=== PATIENT | female | born 1985 | race Caucasian/White ===

== ENCOUNTER 2022-07-30 13:26 | Observation (INO) | payer OTHER, SELFPAY ==
[2022-07-30] VITALS (7 sets, daily range): BP systolic 96–126; BP diastolic 52–71; PULSE 107–132; RESP 16–20; TEMP 36.8–37.6; O2SAT 99–100
[2022-07-30 14:55] LABS: Basophils Percent Auto 0.1 % (0.2-1.2); Eosinophils Percent Auto 0.1 % (0-4.4); Hematocrit 37.4 % (37.0-47.0); Hemoglobin 12.3 g/dL (12.0-15.0); Immature Granulocyte Absolute 0.08 K/mm3 (0.00-0.031); Immature Granulocyte Percent A 0.6 % (0-0.5); Lymphocytes Percent Auto 4.3 % (18.3-44.2); Mean Corpuscular HGB Conc 32.9 g/dl (32-36); Mean Corpuscular Hemoglobin 34.4 pg (26-34); Mean Corpuscular Volume 104.5 fl (80-100); Mean Platelet Volume 8.9 fl (7.4-10.4); Monocytes Absolute Auto 0.7 K/mm3 (0.1-0.6); Monocytes Percent Auto 4.9 % (2.6-8.5); Neutrophils Absolute Auto 12.6 K/mm3 (1.3-6.7); Platelet Count Result 250 k/mm3 (150-375); Red Blood Count 3.58 M/mm3 (4.2-5.4); Red Cell Distribution Width 13.3 % (11.5-14.5)
[2022-07-30 14:58] LABS: Add Urine Microscopic? YES; Appearance Urine Cloudy (Clear); Bilirubin Urine Negative (Negative); Blood Urine 1+ (Negative); Color Urine Yellow (Yellow); Glucose Urine UA Negative (Negative); Ketones Urine 3+ mg/dL (Negative); Leukocyte Esterase Ur 3+ LEU/UL (Negative); Nitrate Urine Positive (Negative); Protein Urine 2+ mg/dL (Negative); Specific Grav Ur 1.025 (1.001-1.035)
[2022-07-30 15:04] LABS: Alanine Aminotransferase 18 U/L (6-35); Albumin Level 3.9 g/dL (3.5-5.1); Alkaline Phosphatase 113 U/L (38-126); Anion Gap 6 mmol/L (8-16); Aspartate Amino Transferase 20 U/L (14-36); Bilirubin,Total 0.8 mg/dL (0.2-1.3); Blood Urea Nitrogen 8 mg/dL (7-17); Carbon Dioxide 24 mmol/L (22-30); Chloride 102 mmol/L (98-107); Estimated CRCL calculation 177 ml/min; Estimated Glomerular Filt Rate > 60; Glucose 110 mg/dL (65-110); Lipase 33 U/L (23-300); Potassium 3.3 mmol/L (3.4-5.0); Sodium 132 mmol/L (137-145)
[2022-07-30 15:34] LABS: Bacteria Urine Trace /hpf; Mucus Urine Rare /lpf; Squamous Epithelial Cell Urine Many /hpf (Few); WBC Clumps Urine Present /HPF; WBC Urine >75 /hpf
--- NOTE | 2022-07-30 23:26 | ED.NAVMDI ---
HPI - Nausea/Vomiting/Diarrhea General Chief complaint: Nausea/Vomiting/Diarrhea Stated complaint: 6 months , vomiting Time Seen by Provider: 07/30/22 22:06 History of Present Illness HPI Narrative: This is a 37-year-old female G2, P1 at 24 weeks and 1 day, who denies past medical history, presenting the emergency department for vomiting for the past 4 days. She states she has had mild right flank pain for the past 5 days, 4 days ago she ate a pizza and has been vomiting since then. She is only able to tolerate small amounts of fluid. She denies fevers, abdominal pain or diarrhea. She has no other complaints today. Related Data Allergies Allergy/AdvReac Type Severity Reaction Status Date / Time Penicillins Allergy Unknown Hives / Verified 01/22/22 13:54 Red Face Review of Systems Review of Systems: CONSTITUTIONAL: Denies fever, chills, or sweats. EYES: Denies visual changes, redness, or discharge. ENT: Denies rhinorrhea, congestion, sore throat, or otalgia. CARDIOVASCULAR: Denies chest pain, palpitations, or edema. RESPIRATORY: Denies cough or dyspnea. GASTROINTESTINAL: Denies abdominal pain, nausea, vomiting, or diarrhea. GENITOURINARY: Right flank pain denies dysuria or hematuria. SKIN: Denies rash or itching. MUSCULOSKELETAL: Denies back pain, joint pain, or myalgia. NEUROLOGIC: Denies headache, numbness, dizziness, or weakness. PSYCHIATRIC: Denies anxiety or depression. Exam Narrative: GENERAL: Well-developed, well-nourished, appears uncomfortable HEAD: Normocephalic, atraumatic. EYES: PERRLA and EOMI. ENT: Nares clear, no rhinorrhea or epistaxis. Mucous membranes dry. Poor dentition.. Oropharynx without tonsillar hypertrophy exudate or other lesions. NECK: Supple. No adenopathy or masses. No carotid bruits or JVD CHEST: Clear to auscultation. No respiratory distress. No wheezes rales or rhonchi HEART: Tachycardic with regular rhythm. No murmur heard. Normal peripheral pulses. ABDOMEN: Soft, nontender, nondistended, normal active bowel sounds. Nontender gravid uterus consistent with dates EXTREMITIES: Normal range of motion. No edema. SKIN: Warm, dry, no rash. NEURO: No focal deficits. Alert and oriented x3. PSYCH: Normal mood and affect. Course Course Emergency Course: 23:36 - Labs demonstrate urinary tract infection, with flank tenderness I suspect pyelonephritis. White blood cell count elevated to 14. Chemistries not concerning for MICHAELA (creatinine 0.4) and mild hypokalemia at 3.3. Bedside ultrasound performed by me demonstrates a single intrauterine consistent with dates, with heart rate in the 140s. Discussed patient with OB, Dr. Robison who accepts admission for pyelonephritis. Vital Signs Vital signs: Vital Signs Temperature 98.2 F 07/30/22 14:23 Pulse Rate 115 H 07/30/22 14:23 Respiratory Rate 16 07/30/22 14:23 Blood Pressure 111/68 07/30/22 14:23 Pulse Oximetry 99 07/30/22 14:23 Oxygen Delivery Room Air 07/30/22 14:23 Temperature 99.6 F 07/30/22 20:53 Pulse Rate 120 H 07/31/22 00:36 Respiratory Rate 20 07/30/22 23:55 Blood Pressure 99/56 L 07/31/22 00:36 Pulse Oximetry 100 07/30/22 23:55 Oxygen Delivery Room Air 07/30/22 22:22 MDM - Nausea/Vomiting/Diarrhea MDM Narrative Medical decision making narrative: Plan: Labs, bedside ultrasound, IV fluids, reassess Differential Diagnosis Differential diagnosis: Likely other (UTI, pyelonephritis, gastroenteritis, hyperemesis gravidarum, metabolic abnormality, other) Lab Data 07/30/22 14:41 07/30/22 14:41 Labs: Lab Results 07/30/22 07/30/22 07/30/22 Range/Units 14:41 14:41 14:41 WBC 14.0 H (4.5-10.0) K/mm3 RBC 3.58 L (4.2-5.4) M/mm3 Hgb 12.3 (12.0-15.0) g/dL Hct 37.4 (37.0-47.0) % MCV 104.5 H (80-100) fl MCH 34.4 H (26-34) pg MCHC 32.9 (32-36) g/dl RDW 13.3 (11.5-14.5) % Plt Count 250 (150-375) k/mm3 MPV
[2022-07-30] MEDS: SODIUM CHLORIDE 0.9% IV 1,000 ML 999 ML IV CONT (23:34)
[2022-07-30] MEDS: ONDANSETRON INJ 4 MG/2 ML VIAL IV PUSH (23:55)
[2022-07-31] VITALS (7 sets, daily range): BP systolic 99–110; BP diastolic 55–62; PULSE 88–120; RESP 17; TEMP 36.4–37.3; BMI 34.6
--- NOTE | 2022-07-31 00:48 | OBADM ---
This patient, Billy So, admitted to the OB room OB Post 117 for observation. Patient/family oriented to hospital policies and general routines including ID bracelet, bed and alarms, visiting hours, pain management, procedures, bathroom and other care routines, personal items, smoking policy, room service/diet, and visiting hours. Patient/Family are encouraged to report perceived risks to care and to ask questions if they do not understand what they are told or what they should do.
[2022-07-31] MEDS: LACTATED RINGERS 1,000 ML 125 ML IV CONT ×3 (01:06→15:05)
[2022-07-31] MEDS: ACETAMINOPHEN 500 MG TABLET 1000 MG PO ×3 (03:03→14:56)
[2022-07-31] MEDS: ONDANSETRON INJ 4 MG/2 ML VIAL IV PUSH ×2 (03:08→08:03)
--- NOTE | 2022-07-31 08:06 | PM.IMHP ---
H&P: [facility] History of Present Illness Date/Time: 07/31/22 08:06 Chief Complaint: Flank pain Narrative: this patient is a 37-year-old 2 para 1001 at 25 weeks gestation who presented emergency department with days of nausea vomiting, flank pain. Evaluation there revealed a pyelonephritis with markedly abnormal urinalysis, mildly elevated white count and flank pain. Patient reported fever at home but no fever was observed in the emergency department. No fever here overnight. She looks well and comfortable. We agreed to discharge today and to treat with 10 days of oral antibiotics. She will follow-up in the office today. We spent 25 minutes [id number]. More than 50% was counseling. Review of Systems Review of Systems: All systems reviewed & are unremarkable except as noted in HPI and below Constitutional: Constitutional: Denies chills, Denies fatigue, Denies fever(s) and Denies weakness Eyes: Eyes: Denies blurry vision, Denies change in vision, Denies loss of peripheral vision, Denies loss of vision, Denies other visual disturbances and Denies eye pain ENT: Denies vertigo, Denies dizziness, Denies hearing loss, Denies mouth pain, Denies nasal obstruction, Denies neck mass and Denies neck pain Cardiovascular: Cardiovascular: Denies chest pain, Denies diaphoresis, Denies syncope, Denies leg edema and Denies dyspnea Respiratory: Respiratory: Denies chest congestion, Denies cough, Denies hemoptysis, Denies dyspnea and Denies wheezing Gastrointestinal: Gastrointestinal: Denies abdominal pain, Denies constipation, Denies diarrhea, Denies nausea and Denies vomiting Genitourinary: Genitourinary: Denies hematuria, Denies change in libido, Denies nocturia, Denies genital lesions, Denies flank pain and Denies urinary urgency Musculoskeletal: Musculoskeletal: Denies abnormal gait, Denies back pain, Denies myalgias, Denies arthralgias, Denies joint swelling, Denies muscle weakness and Denies neck pain Integumentary/Breasts: Skin/Breast: Denies swelling, Denies breast pain, Denies breast mass, Denies dry skin, Denies nipple discharge, Denies unusual bruising and Denies jaundice Neurologic: Denies Neuro-related abnormal movements, Denies Abnormal speech present, Denies abnormal gait, Denies behavioral changes, Denies confusion, Denies vertigo, Denies dizziness, Denies syncope, Denies loss of vision, Denies memory loss, Denies convulsions and Denies weakness Psychiatric: Psychiatric: Denies abnormal sleep pattern, Denies behavioral changes, Denies change in libido, Denies confusion, Denies depression, Denies anhedonia and Denies memory loss Endocrine: Endocrine: Reports no additional endocrine complaints, Denies change in libido and Denies fatigue Hematologic/Lymphatic: Hematologic/Lymphatic: Reports no additional hematologic/lymphatic complaints Allergic/Immunologic: Allergic/Immunologic: Reports no additional allergic/immunologic complaints and Denies wheezing Meds Home Medications and Allergies Allergies Allergy/AdvReac Type Severity Reaction Status Date / Time Penicillins Allergy Unknown Hives / Verified 01/22/22 13:54 Red Face Vital Signs Vital Signs - 24 hr 07/30/22 14:23 07/30/22 18:19 07/30/22 20:53 Temperature 98.2 F 98.5 F 99.6 F Pulse Rate 115 H 116 H 132 H Respiratory Rate 16 20 20 Blood Pressure 111/68 121/70 126/67 Pulse Oximetry 99 100 100 Oxygen Delivery Room Air 07/30/22 22:22 07/30/22 23:01 07/30/22 23:37 Temperature Pulse Rate 125 H 119 H 107 H Respiratory Rate 20 18 20 Blood Pressure 108/71 104/52 L Pulse Oximetry 100 100 100 Oxygen Delivery Room Air 07/30/22 23:55 07/31/22 00:36 07/31/22 05:17 Temperature 97.6 F Pulse Rate 112 H 120 H 105 H Respiratory Rate 20 17 Blood Pressure 96/58 L 99/56 L 102/55 L Pulse Oximetry 100 Oxygen Delivery 07/31/22 07:35 07/31/22 07:38 Temperature 98.5 F Pulse Rate 88 Respiratory Rate Blood Pressure 107/62 Pulse Oximetry
--- NOTE | 2022-07-31 09:35 | PC.NURSE ---
0920--Pt. vomited 50cc brown liquid emesis after drinking a small amount of coffee with cream and sugar. She states she has abdominal pain in lower abdomen, abdomen palpated, uterine tone relaxed, able to palpate bladder. I asked pt. when she last voided and she states it was after the last nurse gave me some medicine. According to the MAR that was approx. 0300 this a.m. Pt. voided 100cc dark, cloudy urine. After voiding, pt. states abdominal pain is better .
[2022-07-31] MEDS: LACTATED RINGERS 1,000 ML 999 ML IV CONT ×2 (10:31→11:33)
[2022-07-31] MEDS: cefTRIAXone 1 GM VIAL IM (10:40)
[2022-07-31] MEDS: LIDOCAINE HCL 1% LOCAL INJ 10 ML VIAL 3.6 ML INFILTRATE (10:41)
--- NOTE | 2022-08-25 08:33 | PM.OBTRLD ---
OB - Triage/Final Diagnosis Visit Information Comments/Additional reasons for admission: I have assessed the risk for this patient, Billy So, and determined that she would benefit from observation care. Evaluation Laboratory results: Laboratory Tests 07/30/22 07/30/22 07/30/22 14:41 14:41 14:41 WBC 14.0 H RBC 3.58 L Hgb 12.3 Hct 37.4 MCV 104.5 H MCH 34.4 H MCHC 32.9 RDW 13.3 Plt Count 250 MPV 8.9 Immature Gran % (Auto) 0.6 H Neut % (Auto) 90.0 H Lymph % (Auto) 4.3 L [place] % (Auto) 4.9 Eos % (Auto) 0.1 Baso % (Auto) 0.1 L Lymph # (Auto) 0.60 L [place] # (Auto) 0.7 H Eos # (Auto) 0.0 Baso # (Auto) 0.0 Abs Immat Gran (auto) 0.08 H Absolute Neuts (auto) 12.6 H Absolute Nucleated RBC 0.0 Nucleated RBC % 0.0 Sodium 132 L Potassium 3.3 L Chloride 102 Carbon Dioxide 24 Anion Gap 6 L BUN 8 Creatinine 0.40 L Estim Creat Clear Calc 177 Estimated GFR > 60 Glucose 110 Calcium 9.0 Total Bilirubin 0.8 AST 20 ALT 18 Alkaline Phosphatase 113 Total Protein 7.0 Albumin 3.9 Lipase 33 Urine Color Yellow Urine Appearance Cloudy H Urine pH 6.0 Ur Specific Point Clear 1.025 Urine Protein 2+ H Urine Glucose (UA) Negative Urine Ketones 3+ H Ur Blood (Man) 1+ H Urine Nitrate Positive H Urine Bilirubin Negative Urine Urobilinogen 1.0 Leukocyte Esterase Rfl 3+ H Urine RBC 3-5 H Urine WBC >75 H Urine WBC Clumps Present H Ur Squamous Epith Cells Many H Urine Bacteria Trace Hyaline Casts 5-9 H Urine Mucus Rare Final Diagnosis (1) Pyelonephritis: Code(s): N12 - Tubulo-interstitial nephritis, not specified as acute or chronic Status: Acute
== END 2022-07-31 19:14 | disposition home or self-care (01) ==
LOC: ANHED 22:06 → ANHOBPP 23:49
PROVIDERS: Emergency Medicine; Admitting Provider Obstetrics & Gynecology; Emergency Provider Preventive Medicine Aerospace Medicine; Visit Provider Obstetrics & Gynecology
DX: O26.892 Other specified pregnancy related conditions, second trimester (principal); N12 Tubulo-interstitial nephritis, not specified as acute or chronic; Z3A.21 21 weeks gestation of pregnancy
CPT/HCPCS: 36415; 80053; 81001; 83690; 85025; 87077; 87086; 87186; 96361; 96365; 96372; 96374; 96375; 96376; 99285; A9270; G0378; G0379; J0696; J2405; J7030; J7120

== ENCOUNTER 2022-10-10 20:16 | Observation (INO) | payer OTHER, SELFPAY ==
--- NOTE | 2022-10-10 20:16 | OBADM ---
This patient, Billy So, admitted to the OB room Labor/Delivery/Recovery 107 for observation. Patient/family oriented to hospital policies and general routines including ID bracelet, bed and alarms, visiting hours, pain management, procedures, bathroom and other care routines, personal items, smoking policy, room service/diet, and visiting hours. Patient/Family are encouraged to report perceived risks to care and to ask questions if they do not understand what they are told or what they should do.
[2022-10-10 20:31] VITALS: BP 112/71; PULSE 101
[2022-10-10 20:46] VITALS: BP 113/63; PULSE 102
[2022-10-10] MEDS: BETAMETHASONE SOD PHOS/ACETATE 30 MG/5 ML VIAL 12 MG IM (21:29)
[2022-10-10] MEDS: LACTATED RINGERS 1,000 ML 999 ML IV CONT (21:33)
[2022-10-10 21:47] VITALS: BMI 38.2
--- NOTE | 2022-10-10 21:48 | LDADM ---
This patient, Billy So, was admitted to Labor/Delivery/Recovery 107 on 10/10/22 at 20:16. Plans for labor, pain management and were discussed with patient. Patient/family oriented to hospital policies and general routines including ID bracelet, bed and alarms, visiting hours, pain management, procedures, bathroom and other care routines, personal items, smoking policy, room service/diet and guest tray routines, security routines, and visiting hours. Patient/Family are encouraged to report perceived risks to care and to ask questions if they do not understand what they are told or what they should do. See OBIX for further documentation.
[2022-10-11] VITALS (58 sets, daily range): BP systolic 107–127; BP diastolic 59–68; PULSE 87–121; RESP 16; TEMP 36.2–36.4; O2SAT 92–99
[2022-10-11] MEDS: TERBUTALINE SULFATE 1 MG/ML VIAL 0.25 MG SUB-Q (00:34)
--- NOTE | 2022-10-13 18:43 | PM.OBTRLD ---
OB - Triage/Final Diagnosis Visit Information Date of evaluation: 10/10/22 Reason for evaluation: threatened labor Comments/Additional reasons for admission: I have assessed the risk for this patient, Billy Luis A So, and determined that she would benefit from observation care.
== END 2022-10-11 09:23 | disposition home or self-care (01) ==
PROVIDERS: Admitting Provider Obstetrics & Gynecology; Visit Provider Obstetrics & Gynecology
DX: O47.03 False labor before 37 completed weeks of gestation, third trimester (principal); Z3A.35 35 weeks gestation of pregnancy
CPT/HCPCS: 96360; 96372; G0378; G0379; J0702; J3105; J7120

== ENCOUNTER 2022-10-21 22:45 | Inpatient (IN) | payer OTHER, SELFPAY ==
--- NOTE | ~2022-10-21 | XR_ITS ---
EXAMINATION: XR abdomen/kub 1V INDICATION: Emergency section TECHNIQUE: Supine views of the abdomen were obtained on 2 radiographs. COMPARISON: None FINDINGS: No radiopaque foreign body is identified. A small amount of free air in the pelvis is consi stent with section. The bowel gas pattern is normal. The visualized osseous structures are u nremarkable. IMPRESSION: 1. No radiopaque foreign body identified. Reviewed, dictated and finalized at location F.
[2022-10-21] MEDS: LACTATED RINGERS 1,000 ML 125 ML IV CONT (23:22)
[2022-10-21 23:23] VITALS: BP 128/78; PULSE 111
[2022-10-21 23:24] VITALS: BMI 39.0
--- NOTE | 2022-10-21 23:24 | LDADM ---
This patient, Billy So, was admitted to Labor/Delivery/Recovery 103 on 10/21/22 at 22:45. Plans for labor, pain management and were discussed with patient. Patient/family oriented to hospital policies and general routines including ID bracelet, bed and alarms, visiting hours, pain management, procedures, bathroom and other care routines, personal items, smoking policy, room service/diet and guest tray routines, security routines, and visiting hours. Patient/Family are encouraged to report perceived risks to care and to ask questions if they do not understand what they are told or what they should do. See OBIX for further documentation.
[2022-10-21 23:25] LABS: Basophils Absolute Auto 0.1 K/mm3 (0.0-0.1); Basophils Percent Auto 0.3 % (0.2-1.2); Eosinophils Absolute Auto 0.2 K/mm3 (0-0.3); Eosinophils Percent Auto 1.2 % (0-4.4); Hematocrit 36.9 % (37.0-47.0); Hemoglobin 12.9 g/dL (12.0-15.0); Immature Granulocyte Absolute 0.15 K/mm3 (0.00-0.031); Immature Granulocyte Percent A 0.9 % (0-0.5); Lymphocytes Percent Auto 14.8 % (18.3-44.2); Mean Corpuscular Hemoglobin 35.9 pg (26-34); Mean Corpuscular Volume 102.8 fl (80-100); Mean Platelet Volume 9.4 fl (7.4-10.4); Monocytes Absolute Auto 0.8 K/mm3 (0.1-0.6); Monocytes Percent Auto 4.3 % (2.6-8.5); Neutrophils Absolute Auto 13.8 K/mm3 (1.3-6.7); Neutrophils Percent Auto 78.5 % (45.5-73.1); Platelet Count Result 312 k/mm3 (150-375); Red Blood Count 3.59 M/mm3 (4.2-5.4); Red Cell Distribution Width 13.3 % (11.5-14.5); White Blood Count 17.6 K/mm3 (4.5-10.0)
[2022-10-21] MEDS: ceFAZolin 2 GM/D5W 50 ML 2 GM/50 ML BAG 100 GM (23:27)
[2022-10-21 23:30] VITALS: BP 116/79; PULSE 93
[2022-10-21] MEDS: ceFAZolin 2 GM/D5W 50 ML 2 GM/50 ML BAG IVPB (23:32)
[2022-10-21 23:46] VITALS: BP 130/67; PULSE 93
[2022-10-22] VITALS (32 sets, daily range): BP systolic 99–131; BP diastolic 56–79; PULSE 77–124; RESP 16–20; TEMP 36.4–36.9; O2SAT 97–100
--- NOTE | 2022-10-22 00:01 | PM.IMHP ---
H&P: HPI History of Present Illness Date/Time: 10/22/22 00:01 Chief Complaint: Labor Review of Systems Review of Systems: All systems reviewed & are unremarkable except as noted in HPI and below Constitutional: Constitutional: Reports as per HPI and Reports no additional constitutional complaints Eyes: Eyes: Reports as per HPI ENT: Reports system reviewed and no additional complaints, except as documented Cardiovascular: Cardiovascular: Reports as per HPI Respiratory: Respiratory: Reports as per HPI Gastrointestinal: Gastrointestinal: Reports as per HPI Genitourinary: Genitourinary: Reports no additional female genitourinary complaints Musculoskeletal: Musculoskeletal: Reports no additional musculoskeletal complaints Integumentary/Breasts: Skin/Breast: Reports system reviewed and no additional complaints, except as docu Neurologic: Reports system reviewed and no additional complaints, except as documented Psychiatric: Psychiatric: Reports no additional psychiatric complaints Endocrine: Endocrine: Reports no additional endocrine complaints Hematologic/Lymphatic: Hematologic/Lymphatic: Reports no additional hematologic/lymphatic complaints Allergic/Immunologic: Allergic/Immunologic: Reports no additional allergic/immunologic complaints [facility] Family History Family History (Updated 10/20/22 @ 14:39 by Tiffani Fall RN) Grandparent Breast cancer Social History Social History Smoking status: Former smoker Lack of Transportation: No Lack of Food: Never True Current Housing: I Have Housing Concerned About Future Housing: No Difficulty Paying Gas/Electric Bills: No Difficulty Paying for Meds: No Currently Unemployed: No Education: High School Diploma/GED Difficulty w/ Childcare or Family Care: No Spiritual care concerns: No Meds Home Medications and Allergies Home Medications Medication Instructions Recorded Confirmed Type vits 75-iron 28 mg-folic 1 pkg PO DAILY 10/10/22 10/20/22 History acid 800 mcg-omega3 440 mg oral pack Allergies Allergy/AdvReac Type Severity Reaction Status Date / Time Penicillins Allergy Unknown Hives / Verified 10/10/22 21:43 Red Face Vital Signs Vital Signs - 24 hr 10/21/22 23:23 10/21/22 23:30 10/21/22 23:46 Pulse Rate 111 H 93 93 Blood Pressure 128/78 116/79 130/67 Exam Const: General: cooperative and healthy appearing Orientation/consciousness: oriented to person, oriented to place, oriented to time and patient oriented x3 Limitations: no limitations HENMT: Head: normal to inspection Ears: hearing grossly normal bilaterally Face/Nose/Sinus: Normal external nose present and normal facial exam Face and sinus: normal facial exam Mouth: Yes Normal oral and palatal mucosa present Teeth and gingiva: dentition normal Throat: posterior oropharynx normal Eyes: General: appearance normal, both eyes and all related structures Neck: Neck: normal visual inspection Thyroid: thyroid normal Chest: Chest palpation & inspection: normal inspection of the chest Resp: Effort & Inspection: normal respiratory effort Auscultation: clear to auscultation bilaterally Cardio: Rate: regular rate Rhythm: regular rhythm GI: Inspection: normal to inspection : General: Yes bimanual renal exam normal bilaterally Skin: General skin exam: normal color and no rashes or lesions noted Neuro: General: oriented to person, oriented to place, oriented to time and patient oriented x3 Extrem: General: normal to inspection Psych: Mental Status: mental status grossly normal H&P: Results Labs Labs: Short CBC 10/21/22 Range/Units 23:15 WBC 17.6 H (4.5-10.0) K/mm3 Hgb 12.9 (12.0-15.0) g/dL Hct 36.9 L (37.0-47.0) % Plt Count 312 (150-375) k/mm3 Quality 37 weeks gestation in spontaneous labor. Per nurse exam complete and unable to fe
--- NOTE | 2022-10-22 00:05 | WPDOBADMIT ---
Obstetrics - Admit Note Admission Note: 37w1d here in spontaneous labor. Arrived 9cm. Unknown presentation per nurse exam due to bbow. Vertex per ultrasound yesterday. Upon my arrival had to wait for ultrasound machine. Bedside ultrasound performed and baby is a unstable transverse presentation. Dr Robison on his way. OR team notified of possible . record reviewed. No pertinent additions to the history and/or any subsequent changes in the physical findings that are not consistent with the expected course of the were found. Additions to the history and/or subsequent changes in the physical findings follow. None.
--- NOTE | 2022-10-22 00:09 | WPDANESEPPF ---
Anes - Initial Pre Proc Eval Date/Time: 10/22/22 00:09 Surgeon: Devin Robison MD Pre Op Diagnosis: labor Patient Data Age: 37 Gender: F Height: 1.6 m Weight: 100 kg Last Vital Signs Pulse 93 10/21/22 23:46 BP 130/67 10/21/22 23:46 Allergies Allergy/AdvReac Type Severity Reaction Status Date / Time Penicillins Allergy Unknown Hives / Verified 10/10/22 21:43 Red Face Home Medications Medication Instructions Recorded Confirmed Type vits 75-iron 28 mg-folic 1 pkg PO DAILY 10/10/22 10/20/22 History acid 800 mcg-omega3 440 mg oral pack Laboratory Tests 10/21/22 10/21/22 10/21/22 23:15 23:15 23:15 WBC 17.6 K/mm3 H K/mm3 (4.5-10.0) RBC 3.59 M/mm3 L M/mm3 (4.2-5.4) Hgb 12.9 g/dL g/dL (12.0-15.0) Hct 36.9 % L % (37.0-47.0) MCV 102.8 fl H fl (80-100) MCH 35.9 pg H pg (26-34) MCHC 35.0 g/dl g/dl (32-36) RDW 13.3 % % (11.5-14.5) Plt Count 312 k/mm3 k/mm3 (150-375) MPV 9.4 fl fl (7.4-10.4) Immature Gran % (Auto) 0.9 % H % (0-0.5) Neut % (Auto) 78.5 % H % (45.5-73.1) Lymph % (Auto) 14.8 % L % (18.3-44.2) [place] % (Auto) 4.3 % % (2.6-8.5) Eos % (Auto) 1.2 % % (0-4.4) Baso % (Auto) 0.3 % % (0.2-1.2) Lymph # (Auto) 2.60 K/mm3 K/mm3 (0.9-3.2) [place] # (Auto) 0.8 K/mm3 H K/mm3 (0.1-0.6) Eos # (Auto) 0.2 K/mm3 K/mm3 (0-0.3) Baso # (Auto) 0.1 K/mm3 K/mm3 (0.0-0.1) Abs Immat Gran (auto) 0.15 K/mm3 H K/mm3 (0.00-0.031) Absolute Neuts (auto) 13.8 K/mm3 H K/mm3 (1.3-6.7) Absolute Nucleated RBC 0.0 K/mm3 K/mm3 (0.0-0.012) Nucleated RBC % 0.0 % % (0.0-0.2) RPR Pending Blood Type O Positive Antibody Screen Pending Patient hx anesthesia problems: none Family hx anesthesia problems: none Results Review: All pre-operative results and documents have been reviewed as part of the pre-operative evaluation. [facility] Past Medical History Medical History (Updated 10/22/22 @ 00:10 by Angel Smith MD) Abnormal heart rate Morbid obesity Family History Family History (Updated 10/20/22 @ 14:39 by Tiffani Fall RN) Grandparent Breast cancer Social History Social History Smoking status: Former smoker Lack of Transportation: No Lack of Food: Never True Current Housing: I Have Housing Concerned About Future Housing: No Difficulty Paying Gas/Electric Bills: No Difficulty Paying for Meds: No Currently Unemployed: No Education: High School Diploma/GED Difficulty w/ Childcare or Family Care: No Spiritual care concerns: No Anes - Eval Final PreProcedure Day of Procedure 10/22/22 00:09 Patient weight: morbidly obese Heart: tachycardia Airway: Mallampati scale class II and special considerations poor dentition ASA classification: III Emergent: yes Anesthetic plan: proceed Anesthesia type and monitoring: general ETT and standard monitoring Results Review: All pre-operative results and documents have been reviewed as part of the pre-operative evaluation. Informed Consent: The patient's anesthetic plan was discussed briefly on way to OR for this emergent case and its attendant risks and benefits were discussed with the patient..
--- NOTE | 2022-10-22 00:28 | PM.IMHP ---
H&P: [facility] History of Present Illness Date/Time: 10/22/22 00:28 Chief Complaint: Labor Narrative: 37-year-old multiparous female at term who presented in labor. She was going to a vertex baby as of yesterday. She was transverse today. The infant's head was rotated in the pelvis. She had polyhydramnios. It was held in the pelvis artificial rupture membranes was performed. Copious amounts of fluid were released from the uterus. When pressure was removed from the find is the head and baby moved back into the transverse position. Heart tones could not be auscultated With Doppler or visualized with ultrasound. proceed immediately to emergency delivery. Review of Systems Review of Systems: All systems reviewed & are unremarkable except as noted in HPI and below Constitutional: Constitutional: Denies chills, Denies fatigue, Denies fever(s) and Denies weakness Eyes: Eyes: Denies blurry vision, Denies change in vision, Denies loss of peripheral vision, Denies loss of vision, Denies other visual disturbances and Denies eye pain ENT: Denies vertigo, Denies dizziness, Denies hearing loss, Denies mouth pain, Denies nasal obstruction, Denies neck mass and Denies neck pain Cardiovascular: Cardiovascular: Denies chest pain, Denies diaphoresis, Denies syncope, Denies leg edema and Denies dyspnea Respiratory: Respiratory: Denies chest congestion, Denies cough, Denies hemoptysis, Denies dyspnea and Denies wheezing Gastrointestinal: Gastrointestinal: Denies abdominal pain, Denies constipation, Denies diarrhea, Denies nausea and Denies vomiting Genitourinary: Genitourinary: Denies hematuria, Denies change in libido, Denies nocturia, Denies genital lesions, Denies flank pain and Denies urinary urgency Musculoskeletal: Musculoskeletal: Denies abnormal gait, Denies back pain, Denies myalgias, Denies arthralgias, Denies joint swelling, Denies muscle weakness and Denies neck pain Integumentary/Breasts: Skin/Breast: Denies swelling, Denies breast pain, Denies breast mass, Denies dry skin, Denies nipple discharge, Denies unusual bruising and Denies jaundice Neurologic: Denies Neuro-related abnormal movements, Denies Abnormal speech present, Denies abnormal gait, Denies behavioral changes, Denies confusion, Denies vertigo, Denies dizziness, Denies syncope, Denies loss of vision, Denies memory loss, Denies convulsions and Denies weakness Psychiatric: Psychiatric: Denies abnormal sleep pattern, Denies behavioral changes, Denies change in libido, Denies confusion, Denies depression, Denies anhedonia and Denies memory loss Endocrine: Endocrine: Reports no additional endocrine complaints, Denies change in libido and Denies fatigue Hematologic/Lymphatic: Hematologic/Lymphatic: Reports no additional hematologic/lymphatic complaints Allergic/Immunologic: Allergic/Immunologic: Reports no additional allergic/immunologic complaints and Denies wheezing PMFSH Past Medical History Medical History (Updated 10/22/22 @ 00:31 by Devin Robison MD) Abnormal heart rate Morbid obesity Family History Family History (Updated 10/20/22 @ 14:39 by Tiffani Fall RN) Grandparent Breast cancer Social History Social History Smoking status: Former smoker Lack of Transportation: No Lack of Food: Never True Current Housing: I Have Housing Concerned About Future Housing: No Difficulty Paying Gas/Electric Bills: No Difficulty Paying for Meds: No Currently Unemployed: No Education: High School Diploma/GED Difficulty w/ Childcare or Family Care: No Spiritual care concerns: No Meds Home Medications and Allergies Home Medications Medication Instructions Recorded Confirmed Type vits 75-iron 28 mg-folic 1 pkg PO DAILY 10/10/22 10/20/22 History acid 800 mcg-omega3 440 mg oral pack Allergies Allergy/AdvReac Type Severity Reaction Status Date / Time P
--- NOTE | 2022-10-22 00:31 | W.PM.PROC2 ---
Procedure Note - Detailed Date of Procedure 10/22/22 Pre-op Diagnosis labor, unstable lie, polyhydramnios, nonreassuring heart tones Post-op Diagnosis Same Procedure Performed Low-transverse section Surgeon Devin Robison MD Anesthesia Spinal Indications nonreassuring heart tone Findings Normal gestational maternal anatomy, average size , normal Apgars. Description of Procedure the procedure was performed in emergency fashion.The patient was taken the operating room. She was prepped and draped in dorsal supine position with a leftward tilt. After general anesthesia was initiated. A low-transverse skin incision was made and carried down till of the fascia with the knife. The fascial incision was made with the knife. The fascial incision was extended laterally with Ceja scissors. The fascia was tented upward superiorly and inferiorly the rectus muscles were dissected off bluntly. The rectus muscles were the midline. The preperitoneal fat and peritoneum were dissected open bluntly at the superior aspect of the rectus muscles. The peritoneal incision was extended superior and inferior with good position of bladder. The uterine incision was made with a scalpel down to the level of the amniotic cavity. The amniotic cavity was entered bluntly. The was delivered. The cord was clamped and cut and the was handed off to waiting pediatric staff. Cord bloods were obtained. The placenta was removed manually. The uterus was exteriorized. The uterus was cleared of all clots, debris and membranes. The uterus was closed in 0 Vicryl running lock fashion. An imbricating over a was placed along the incision line as well. The uterus was returned to the abdomen. The gutters were cleared of all clots and debris. The fascia was closed with 0 Vicryl running fashion. The subcutaneous tissue was irrigated pinpoint bleeders were cauterized. The skin was closed with subcuticular absorbable ladan. The skin incision line was covered with glue. The patient tolerated the procedure well. She has taken recovery room in stable condition. Sponge lap and needle counts were correct x2. Estimated Blood Loss 700 Complications No immediate complications Condition Stable Disposition PACU
[2022-10-22] MEDS: fentaNYL CITRATE INJ (*CRX) 100 MCG/2 ML VIAL IV PUSH (00:39)
[2022-10-22] MEDS: MORPHINE SULFATE PCA (*CRX) 30 MG/30 ML SYR IV CONT (02:23)
[2022-10-22 02:36] LABS: Amphetamine Screen Urine Negative (Negative); Barbiturate Screen Urine Negative (Negative); Benzodiazepines Screen Urine Negative (Negative); Cannabinoid Screen Urine Positive (Negative); Cocaine Screen Urine Negative (Negative); Methadone Screen Urine Negative (Negative); Opiate Screen Urine Negative (Negative); Phencyclidine Screen Urine Negative (Negative)
--- NOTE | 2022-10-22 03:18 | PC.NURSE ---
Patient transferred to post room #292 per stretcher from labor and delivery. Oriented to unit, room, information board, rooming in, admission packet and security measures. Patient verbalizes understanding.
[2022-10-22] MEDS: GENTAMICIN SULFATE INJ 355 MG in DEXTROSE 5% 100 ML 108.88 MG IVPB (03:49)
[2022-10-22] MEDS: KETOROLAC 30 MG/ML VIAL (*BKC) IV PUSH (04:06)
[2022-10-22] MEDS: ceFAZolin 2 GM/D5W 50 ML 2 GM/50 ML BAG IVPB ×3 (08:15→23:55)
--- NOTE | 2022-10-22 08:15 | P.PNOB_ITS ---
OB - PN: Subj Subjective Date/time seen: 10/22/22 08:15 Patient comments: no complaints, pain well controlled, tolerating diet and flatus present OB - PN: Obj Data Labs 10/21/22 23:15 Labs: Laboratory Results - last 24 hr 10/21/22 10/21/22 10/22/22 23:15 23:15 02:09 WBC 17.6 H RBC 3.59 L Hgb 12.9 Hct 36.9 L MCV 102.8 H MCH 35.9 H MCHC 35.0 RDW 13.3 Plt Count 312 MPV 9.4 Immature Gran % (Auto) 0.9 H Neut % (Auto) 78.5 H Lymph % (Auto) 14.8 L [place] % (Auto) 4.3 Eos % (Auto) 1.2 Baso % (Auto) 0.3 Lymph # (Auto) 2.60 [place] # (Auto) 0.8 H Eos # (Auto) 0.2 Baso # (Auto) 0.1 Abs Immat Gran (auto) 0.15 H Absolute Neuts (auto) 13.8 H Absolute Nucleated RBC 0.0 Nucleated RBC % 0.0 Urine Opiates Screen Negative Urine Methadone Screen Negative Ur Barbiturates Screen Negative Ur Phencyclidine Scrn Negative Ur Amphetamine Screen Negative U Benzodiazepines Scrn Negative Urine Cocaine Screen Negative U Cannabinoids Screen Positive A Blood Type O Positive Antibody Screen Negative Imaging Radiologist's impression: Impressions Abdomen X-Ray 10/22/22 01:21 IMPRESSION: 1. No radiopaque foreign body identified. OB - PN A/P Plan day: 1 Comments: Post Op LTCS - no problems, routine recovery Time Spent With Patient Time: Total time spent is greater than 50% in coordination of care (as documented) at patient's floor/unit and/or counseling patient: Exam Const: General: cooperative, healthy appearing, comfortable and no acute distress Resp: Auscultation: no crackles, no rales, no rhonchi and no wheezes Cardio: Rhythm: regular rhythm Heart sounds: no click and no murmurs GI: Inspection: non-distended Auscultation: normal bowel sounds Extrem: General: normal to inspection, no pedal edema and no calf tenderness
--- NOTE | 2022-10-22 08:23 | P.PNAN_ITS ---
Anes - Prog Note Post-Op Date/Time: 10/22/22 08:23 Cardiovascular status: normal Respiratory status: normal Airway patency: baseline Mental status: baseline Post-Op hydration status: normal Vital Signs: Last Vital Signs Temp 36.4 C L 10/22/22 03:30 Pulse 112 H 10/22/22 03:30 Resp 20 10/22/22 03:30 BP 103/68 10/22/22 03:30 Pulse Ox 98 10/22/22 02:44 O2 Del Method Room Air 10/22/22 02:44 Pain Score (VAS): 4 I/O: Intake & Output 10/21/22 10/22/22 10/22/22 23:59 07:59 15:59 Intake Total 100 1108.875 Output Total 1393 Balance 100 -284.125 Laboratory Tests 10/21/22 23:15 10/21/22 10/21/22 10/21/22 23:15 23:15 23:15 WBC 17.6 H RBC 3.59 L Hgb 12.9 Hct 36.9 L MCV 102.8 H MCH 35.9 H MCHC 35.0 RDW 13.3 Plt Count 312 MPV 9.4 Immature Gran % (Auto) 0.9 H Neut % (Auto) 78.5 H Lymph % (Auto) 14.8 L [place] % (Auto) 4.3 Eos % (Auto) 1.2 Baso % (Auto) 0.3 Lymph # (Auto) 2.60 [place] # (Auto) 0.8 H Eos # (Auto) 0.2 Baso # (Auto) 0.1 Abs Immat Gran (auto) 0.15 H Absolute Neuts (auto) 13.8 H Absolute Nucleated RBC 0.0 Nucleated RBC % 0.0 Urine Opiates Screen Urine Methadone Screen Ur Barbiturates Screen Ur Phencyclidine Scrn Ur Amphetamine Screen U Benzodiazepines Scrn Urine Cocaine Screen U Cannabinoids Screen RPR Pending Blood Type O Positive Antibody Screen Negative 10/22/22 02:09 WBC RBC Hgb Hct MCV MCH MCHC RDW Plt Count MPV Immature Gran % (Auto) Neut % (Auto) Lymph % (Auto) [place] % (Auto) Eos % (Auto) Baso % (Auto) Lymph # (Auto) [place] # (Auto) Eos # (Auto) Baso # (Auto) Abs Immat Gran (auto) Absolute Neuts (auto) Absolute Nucleated RBC Nucleated RBC % Urine Opiates Screen Negative Urine Methadone Screen Negative Ur Barbiturates Screen Negative Ur Phencyclidine Scrn Negative Ur Amphetamine Screen Negative U Benzodiazepines Scrn Negative Urine Cocaine Screen Negative U Cannabinoids Screen Positive A RPR Blood Type Antibody Screen Post-procedural complaints: none Patient Feedback: Patient satisfied with anesthetic care.
--- NOTE | 2022-10-22 08:23 | WPDANLDPN2 ---
Anes-Prog Note L&D Date/Time: 10/22/22 08:23 Comfortable throughout: section Neuro status: Neuro function grossly intact. Cardiovascular status: normal Respiratory status: normal Airway patency: baseline Mental status: baseline Post-Op hydration status: normal Vital Signs: Last Vital Signs Temp 36.4 C L 10/22/22 03:30 Pulse 112 H 10/22/22 03:30 Resp 20 10/22/22 03:30 BP 103/68 10/22/22 03:30 Pulse Ox 98 10/22/22 02:44 O2 Del Method Room Air 10/22/22 02:44 Pain score (VAS): 4 I/O: Intake & Output 10/21/22 10/22/22 10/22/22 23:59 07:59 15:59 Intake Total 100 1108.875 Output Total 1393 Balance 100 -284.125 Post-procedural complaints: none Patient feedback: Patient satisfied with anesthetic care.
[2022-10-22] MEDS: SIMETHICONE 80 MG TAB.CHEW PO ×2 (09:30→15:51)
[2022-10-22] MEDS: DEXTROSE 5%/0.45% SOD CHL 1,000 ML 125 ML IV CONT (09:30)
[2022-10-22] MEDS: HYDROcodone/acetaminophen (*CRX) 10-325 MG TABLET 1 TAB PO ×4 (09:30→21:18)
[2022-10-22] MEDS: POLYSACCHARIDE IRON COMPLEX 150 MG CAPSULE PO ×2 (10:00→16:01)
[2022-10-22] MEDS: DOCUSATE SODIUM 100 MG CAPSULE PO ×2 (10:00→16:01)
[2022-10-22] MEDS: MULTIVIT/MIN/PREN/FOL AC/IRON TABLET 1 TAB PO (10:00)
--- NOTE | 2022-10-22 11:34 | PCCCNOTE ---
Addendum entered by FAM Vigil 10/22/22 13:24: Recvd email from [facility] that states: Your information has been reviewed and assessed by a Router Operator and was also approved by a snow removal supervisor. The information you provided did not meet one of the criteria for an investigation (eligible victim, eligible perpetrator, eligible event, or jurisdiction). The information as been documented and will be kept on file. Should you learn of further information or have additional concerns, please feel free to contact us. LUTHER Cook aware. Original Note: Care Coordination: Met with pt. after receiving referral that states does not have custody of other child. Pt. has support at bedside - sister Kisha and friend Antonella. Pt. reports she does not have custody of her 7 year old son, Duncan because pt. was tricked into signed away her parental rights. Pt. states she has no prior involvement with [facility]. Pt. reports her 7 year old son is cared for by his paternal grandmother, Monica So, who still lives in [facility]. Pt. moved to [place] with her Duncan in 2018. Pt. reports in middle of divorce with Duncan. Pt. reports she moved back to [place] in February of 2022 due to being and wanted friend and family support for . Pt. reports Duncan is still in [place]. Pt. states plans to live at home with , and pt's mother Leah and father David. Pt. reports having supplies for . Pt. reports already established with [facility] and will sign up for [employer] soon. Pt. reports she used THC during due to nausea and to increase appetite. Pt. reports she and her parents are in the process of regaining custody of her 7 year old. Pt. reports she had late care due to change in insurance. resources provided to pt. [facility] report made online #[phone]. LUTHER Cook aware.
[2022-10-22 12:24] LABS: Estimated CRCL calculation 229 ml/min; Estimated Glomerular Filt Rate > 60
[2022-10-22 13:57] LABS: Rapid Plasma Reagin Non-Reactive (NonReactive)
[2022-10-22] MEDS: IBUPROFEN 600 MG TABLET PO (15:51)
[2022-10-22 16:32] LABS: Estimated CRCL calculation 180 ml/min; Estimated Glomerular Filt Rate > 60
[2022-10-22 16:57] LABS: Gentamicin Random < 0.6 ug/mL (5.0-12.0)
[2022-10-23] MEDS: IBUPROFEN 600 MG TABLET PO ×3 (04:54→20:46)
[2022-10-23] MEDS: GENTAMICIN SULFATE INJ 355 MG in DEXTROSE 5% 100 ML 100 MG IVPB (04:54)
[2022-10-23] MEDS: HYDROcodone/acetaminophen (*CRX) 10-325 MG TABLET 1 TAB PO ×2 (04:55→09:10)
[2022-10-23 05:22] LABS: Hematocrit 29.7 % (37.0-47.0); Hemoglobin 9.5 g/dL (12.0-15.0); Mean Corpuscular Hemoglobin 34.5 pg (26-34); Mean Platelet Volume 9.7 fl (7.4-10.4); Platelet Count Result 234 k/mm3 (150-375); Red Blood Count 2.75 M/mm3 (4.2-5.4); Red Cell Distribution Width 13.9 % (11.5-14.5); White Blood Count 18.8 K/mm3 (4.5-10.0)
[2022-10-23 05:54] LABS: Band Neutrophils Percent 23 % (0-6); Eosinophils Absolute Manual 0.18 K/mm3 (0.02-0.5); Eosinophils Percent Manual 1 % (0-4); Lymphocytes Absolute Manual 2.06 K/mm3 (1.1-4.5); Metamyelocytes Percent 1 %; Monocytes Absolute Manual 0.94 K/mm3 (0.1-0.90); Monocytes Percent Manual 5 % (3-9); Neutrophils Absolute Manual 15.41 K/mm3 (1.7-7.2); Neutrophils Percent Manual 59 % (46-73); Platelet Clumps Present; Platelet Estimate Adequate (Adequate); Total Cells Counted 100
[2022-10-23 05:56] LABS: Hypochromasia 1+ (NORMAL); Macrocytosis 2+ (NORMAL); Schistocytes None Seen (NORMAL); Smudge Cells MODERATE
[2022-10-23 07:25] VITALS: BP 112/71; PULSE 121; RESP 16; TEMP 37.1; O2SAT 98
--- NOTE | 2022-10-23 07:26 | PM.OBPNVD ---
OB - PN: Subj Subjective Date/time seen: 10/23/22 07:26 doing well s/p section day 1 OB - PN: Obj Data Labs 10/23/22 05:00 10/22/22 16:10 Labs: Laboratory Results - last 24 hr 10/21/22 10/21/22 10/22/22 23:15 23:15 16:10 WBC RBC Hgb Hct MCV MCH MCHC RDW Plt Count MPV Immature Gran % (Auto) Neut % (Auto) Lymph % (Auto) [place] % (Auto) Eos % (Auto) Baso % (Auto) Lymph # (Auto) [place] # (Auto) Eos # (Auto) Baso # (Auto) Abs Immat Gran (auto) Absolute Neuts (auto) Absolute Nucleated RBC Total Counted Neutrophils % (Manual) Band Neutrophils % Lymphocytes % (Manual) Monocytes % (Manual) Eosinophils % (Manual) Metamyelocytes % Nucleated RBC % Abs Neuts (Manual) Abs Lymphs (Manual) Abs Monocytes (Manual) Absolute Eos (Manual) Smudge Cells Platelet Estimate Clumped Platelets Hypochromasia Macrocytosis Schistocytes Creatinine 0.30 L Estim Creat Clear Calc 229 Estimated GFR > 60 Random Gentamicin < 0.6 L RPR Non-reactive 10/22/22 10/23/22 16:10 05:00 WBC 18.8 H RBC 2.75 L Hgb 9.5 L D Hct 29.7 L MCV 108.0 H D MCH 34.5 H MCHC 32.0 RDW 13.9 Plt Count 234 MPV 9.7 Immature Gran % (Auto) Not Reportable Neut % (Auto) Not Reportable Lymph % (Auto) Not Reportable [place] % (Auto) Not Reportable Eos % (Auto) Not Reportable Baso % (Auto) Not Reportable Lymph # (Auto) Not Reportable [place] # (Auto) Not Reportable Eos # (Auto) Not Reportable Baso # (Auto) Not Reportable Abs Immat Gran (auto) Not Reportable Absolute Neuts (auto) Not Reportable Absolute Nucleated RBC Not Reportable Total Counted 100 Neutrophils % (Manual) 59 Band Neutrophils % 23 H Lymphocytes % (Manual) 11.0 L Monocytes % (Manual) 5 Eosinophils % (Manual) 1 Metamyelocytes % 1 Nucleated RBC % Not Reportable Abs Neuts (Manual) 15.41 H Abs Lymphs (Manual) 2.06 Abs Monocytes (Manual) 0.94 H Absolute Eos (Manual) 0.18 Smudge Cells Moderate Platelet Estimate Adequate Clumped Platelets Present Hypochromasia 1+ Macrocytosis 2+ Schistocytes None seen Creatinine 0.40 L Estim Creat Clear Calc 180 Estimated GFR > 60 Random Gentamicin RPR OB - PN A/P Time Spent With Patient Time: Total time spent is greater than 50% in coordination of care (as documented) at patient's floor/unit and/or counseling patient: Review of Systems Review of Systems: All systems reviewed & are unremarkable except as noted in HPI and below Exam Narrative: Incision CDI Const: General: healthy appearing Chest: Chest palpation & inspection: normal inspection of the chest Resp: Effort & Inspection: normal respiratory effort GI: Inspection: normal to inspection Other: Incision CDI Skin: General skin exam: normal color and no rashes or lesions noted
[2022-10-23] MEDS: POLYSACCHARIDE IRON COMPLEX 150 MG CAPSULE PO ×2 (09:10→16:18)
[2022-10-23] MEDS: MULTIVIT/MIN/PREN/FOL AC/IRON TABLET 1 TAB PO (09:10)
[2022-10-23] MEDS: DOCUSATE SODIUM 100 MG CAPSULE PO ×2 (09:10→16:18)
[2022-10-23 09:30] VITALS: PULSE 113; RESP 18; O2SAT 97
[2022-10-23] MEDS: HYDROcodone/acetaminophen (*CRX) 5-325 MG TABLET 1 TAB PO ×3 (12:28→20:46)
[2022-10-23 19:48] VITALS: BP 108/64; PULSE 100; RESP 16; O2SAT 98
[2022-10-24] MEDS: HYDROcodone/acetaminophen (*CRX) 5-325 MG TABLET 1 TAB PO (02:01)
[2022-10-24] MEDS: DOCUSATE SODIUM 100 MG CAPSULE PO (08:07)
[2022-10-24] MEDS: POLYSACCHARIDE IRON COMPLEX 150 MG CAPSULE PO (08:07)
[2022-10-24] MEDS: IBUPROFEN 600 MG TABLET PO (08:08)
[2022-10-24] MEDS: MULTIVIT/MIN/PREN/FOL AC/IRON TABLET 1 TAB PO (08:08)
[2022-10-24 08:10] VITALS: BP 109/74; PULSE 99; RESP 16; TEMP 36.6; O2SAT 98
[2022-10-24] MEDS: HYDROcodone/acetaminophen (*CRX) 10-325 MG TABLET 1 TAB PO ×2 (08:11→12:31)
--- NOTE | 2022-10-24 10:38 | PC.NURSE ---
Advised patient to viewed the discharge video Mother & Baby Care, The First Two Weeks online. Patient was given the opportunity and encouraged to ask questions. Patient verbalized understanding of information shared and has been given the mother/baby guide for home reference.
--- NOTE | 2022-10-24 10:45 | PM.OBPNVD ---
OB - PN: Subj Subjective Date/time seen: 10/24/22 10:45 Patient comments: no complaints, pain well controlled, incisional pain, tolerating diet and flatus present OB - PN: Obj Data Labs 10/23/22 05:00 10/22/22 16:10 OB - PN A/P Plan day: 3 Plan: routine care, discharge home and other Comments: Incision check in one week. Given precautions Time Spent With Patient Time: Total time spent is greater than 50% in coordination of care (as documented) at patient's floor/unit and/or counseling patient: Exam Const: General: comfortable, no acute distress and alert Resp: Effort & Inspection: normal respiratory effort Auscultation: no crackles, no rales and no rhonchi Cardio: Rate: regular rate Heart sounds: no click, no murmurs and no rubs GI: Inspection: non-distended GI Palp: No Tenderness to palpation present (GI) Auscultation: normal bowel sounds Other: Incision - CDI Extrem: General: normal to inspection, no pedal edema and no calf tenderness
--- NOTE | 2022-10-24 10:47 | PM.OBDSVD ---
DS: Admitting Diagnosis Discharge Date 10/24/2030 Admitting Diagnosis term DS: Discharge Diagnosis Discharge Diagnosis (1) delivery delivered: Code(s): O82 - Encounter for delivery without indication Status: Acute OB - DS: Summary OB Procedures : None OB Procedures Intrapartum: OB Procedures: : None Peripartum Data Procedures: Procedures Operation Date: 10/21/22 23:45 Actual Procedure Side Surgeon p Section Bilateral Devin Robison MD Time Spent with Patient Time attestation: Total time spent providing and/or coordinating discharge services: Discharge Plan Discharge Discharging Clinician: Devin Robison Patient Disposition: Home, Self-Care Activity: pelvic rest Diet: regular Patient Instructions: Antibiotic Form Stand Alone Forms: General Discharge Information Follow-up/Referrals: Devin Robison MD [Physician] - Discharge Medications: New hydrocodone-acetaminophen 5-325 mg tablet 1 tablet PO Q4H PRN (Reason: pain) Qty: 25 0RF Continued [id number] fum-folic ac-om3 [id number] mg-mcg-mg Combo Pack 1 pkg PO DAILY Date of admission: 10/21/22 22:45 Primary Care Provider: Joelle Garcia Admitting Provider: Devin Robison Attending physician on admission: Devin Robison Condition: Stable
[2022-10-24] MEDS: MEASLES,MUMPS,RUBELLA VACCINE 0.5 ML VIAL SUB-Q (12:28)
[2022-10-24] MEDS: TETANUS,DIPHTHERIA,AC PERTUSSIS ADULT (0.5 ML) BOOSTRIX IM (12:30)
[2022-10-26 11:06] VITALS: BP 118/76; PULSE 108; RESP 20; TEMP 36.3; O2SAT 100
== END 2022-10-24 12:53 | disposition home or self-care (01) | DRG 540 ==
LOC: ANHLDR 23:09 → ANHOB2 10-22 03:24
PROVIDERS: Admitting Provider Obstetrics & Gynecology; PCP Advanced Practice Midwife; Visit Provider Obstetrics & Gynecology
PROC: (CPT 59514; principal; 2022-10-21 23:45)
DX: O32.0XX0 Maternal care for unstable lie, not applicable or unspecified (principal); O36.8330 Maternal care for abnormalities of the fetal heart rate or rhythm, third trimester, not applicable or unspecified; Z37.0 Single live birth; Z3A.37 37 weeks gestation of pregnancy
CPT/HCPCS: 36415; 74018; 80170; 80307; 82565; 85025; 86592; 86850; 86900; 86901; 90710; 90715; A9270; J0330; J0690; J1580; J1885; J2270; J2405; J2590; J2704; J3010; J7120

== ENCOUNTER 2025-05-29 18:53 | Emergency (ER) | payer OTHER, SELFPAY ==
--- OUTSIDE RECORDS SUMMARY | 2025-05-29 18:56 | XMS_ITS | Clinical Summary ---
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
[2025-05-29 19:03] VITALS: BP 104/63; PULSE 111; RESP 18; TEMP 36.6; O2SAT 99
--- NOTE | 2025-05-29 19:24 | ED_ITS ---
HPI - General Adult General Chief complaint: Nausea/Vomiting/Diarrhea Stated complaint: Vomiting Source: patient Mode of arrival: ambulatory Limitations: no limitations History of Present Illness HPI narrative: Patient presents for evaluation of nausea and vomiting. Her symptoms started 2 days ago. At that time she had a migraine headache. She has a history of migraines and her symptoms were consistent with normal migraine pattern. Pain was in frontal region, throbbing with associated photophobia. After vomiting around the time of symptom onset, her headache resolved. She continued to have nausea and vomiting without abdominal pain. She had some diarrhea today. She denies any fever, chills, urinary symptoms, cough, shortness of breath, sore throat, otalgia. No recent sick contacts to her knowledge. No recent travel. No recent alcohol. No recent marijuana. She took pepto-bismol just prior to coming in and her symptoms have resolved. She would like a flu test. Related Data Home Medications ?Medication ?Instructions ?Recorded ?Confirmed ?Last Taken ?Type drospirenone (contraceptive) 4 mg 05/29/25 Unknown H istory (28) tablet (Slynd) Allergies Allergy/AdvReac Type Severity Reaction Status Date / Time Penicillins Allergy Intermediate Hives / Verified 05/29/25 18:56 Red Face Review of Systems Review of Systems: CONSTITUTIONAL: Denies fever, chills, or sweats. EYES: Denies visual changes, redness, or discharge. ENT: Denies rhinorrhea, congestion, sore throat, or otalgia. CARDIOVASCULAR: Denies chest pain, palpitations, or edema. RESPIRATORY: Denies cough or dyspnea. GASTROINTESTINAL:Reports recent nausea and vomiting, since resolved GENITOURINARY: Denies dysuria or hematuria. SKIN: Denies rash or itching. MUSCULOSKELETAL: Denies back pain, joint pain, or myalgia. NEUROLOGIC: Denies headache, numbness, dizziness, or weakness. PSYCHIATRIC: Denies anxiety or depression. [facility] Past Medical History Medical History Abnormal heart rate Morbid obesity Surgical History Surgical History (Updated 05/29/25 @ 19:40 by Damion Marshall APRN, [place]) History of Family History Family History Grandparent Breast cancer Social History Social History Substance use: current Substance use type: marijuana Lack of Transportation: No Lack of Food: Never True Current Housing: I Have Housing Concerned About Future Housing: No Difficulty Paying Gas/Electric Bills: No Difficulty Paying for Meds: No Currently Unemployed: No Education: High School Diploma/GED Difficulty w/ Childcare or Family Care: No Spiritual care concerns: No Exam Narrative: GENERAL: Well-appearing, well-nourished, and in no acute distress. HEAD: Normocephalic, atraumatic. EYES: PERRLA and EOMI. ENT: Nares clear, no rhinorrhea or epistaxis. Mucous membranes moist. Oropharynx without tonsillar hypertrophy exudate or other lesions. Bilateral TMs pearly bryan nonbulging NECK: Supple. No adenopathy or masses. No carotid bruits or JVD CHEST: Clear to auscultation. No respiratory distress. No wheezes rales or rhonchi HEART: Regular rate and rhythm. No murmur heard. Normal peripheral pulses. ABDOMEN: Soft, nontender, nondistended, normal active bowel sounds. EXTREMITIES: Normal range of motion. No edema. SKIN: Warm, dry, no rash. NEURO: No focal deficits. Alert and oriented x3. PSYCH: Normal mood and affect. Course Course Emergency Course: This is a 40-year-old female who presented for evaluation of recent nausea and vomiting, although none currently. She declined obstructive series. I think this is reasonable. She has no abdominal pain. COVID and influenza were negative. In fact her symptoms have resolved with time she got here. Recommend increased hydration will discharge her with some Zofran. She should follow-up with her primary care provider go to the ER for worsening symptoms. Patient in agreement with plan of care. Level of Care: Express Care Visit Vital Signs Vital signs: Vital Signs Temperature 36.6 C 05/29/25 19:03 Pulse Rate 111 H 05/29/25 19:03 Respiratory Rate 18 05/29/25 19:03 Blood Pressure 104/63 05/29/25 19:03 Pulse Oximetry 99 05/29/25 19:03 Oxygen Delivery Room Air 05/29/25 19:03 Temperature 36.6 C 05/29/25 19:03 Pulse Rate 111 H 05/29/25 19:03 Respiratory Rate 18 05/29/25 19:03 Blood Pressure 104/63 05/29/25 19:03 Pulse Oximetry 99 05/29/25 19:03 Oxygen Delivery Room Air 05/29/25 19:03 Medical Decision Making Vital Signs Vital Signs: Vital Signs Temperature 36.6 C 05/29/25 19:03 Pulse Rate 111 H 05/29/25 19:03 Respiratory Rate 18 05/29/25 19:03 Blood Pressure 104/63 05/29/25 19:03 Pulse Oximetry 99 05/29/25 19:03 Oxygen Delivery Room Air 05/29/25 19:03 Temperature 36.6 C 05/29/25 19:03 Pulse Rate 111 H 05/29/25 19:03 Respiratory Rate 18 05/29/25 19:03 Blood Pressure 104/63 05/29/25 19:03 Pulse Oximetry 99 05/29/25 19:03 Oxygen Delivery Room Air 05/29/25 19:03 Lab Data Labs: Lab Results 05/29/25 Range/Units 19:31 POC Influenza A Ag Negative (Negative) POC Influenza B Ag Negative (Negative) POC SARS CoV-2 Ag Negative (Negative) Discharge Plan Discharge Clinical Impression: Nausea & vomiting Patient Disposition: Home Condition: Stable Instructions: Antibiotic Form, Acute Nausea and Vomiting (ED) Additional Instructions: FOLLOW A CLEAR LIQUID DIET YOU MAY PROGRESS TO A BLAND DIET IF YOU TOLERATE FLUIDS PLEASE GO TO THE ER IF YOU HAVE ABDOMINAL PAIN OR RECURRENT SYMPTOMS THAT DO NOT RESPOND TO MEDICATION Patient Language: Hebrew Prescriptions: New ondansetron 4 mg tablet,disintegrating 4 mg PO Q8H PRN (Reason: nausea and vomiting) Qty: 15 0RF No Action Slynd 4 mg (28) tablet Follow-up/Referrals: Driss Walter MD [Physician, Family Practice] Time of Disposition: 19:34
[2025-05-29 19:33] LABS: EDCOVIDSCREEN Negative (Negative); EDINFLUASCREEN Negative (Negative); EDINFLUBSCREEN Negative (Negative)
== END 2025-05-29 19:36 | disposition home or self-care (01) ==
PROVIDERS: Emergency Provider Nurse Practitioner
DX: R11.2 Nausea with vomiting, unspecified (principal); Z20.822 Contact with and (suspected) exposure to COVID-19
CPT/HCPCS: 87426; 87804; 99213; G0463

== ENCOUNTER 2025-06-01 08:57 | Emergency (ER) | payer OTHER, SELFPAY ==
[2025-06-01 09:06] VITALS: BP 107/67; PULSE 66; RESP 18; TEMP 36.1; O2SAT 100
--- NOTE | 2025-06-01 09:18 | ED_ITS ---
HPI - Nausea/Vomiting/Diarrhea General Chief complaint: Nausea/Vomiting/Diarrhea Stated complaint: n/v Source: patient Mode of arrival: ambulatory Limitations: no limitations History of Present Illness HPI Narrative: This is a 40 y/o female that presents with complaints of continued nausea and vomiting. Her symptoms started 6 days ago. At that time she had a migraine headaches and abdominal discomfort. She has a history of migraines and her symptoms were consistent with normal migraine pattern. Pain was in frontal region, throbbing with associated photophobia. After vomiting around the time of symptom onset, her headache resolves. She continued to have nausea and vomiting without abdominal pain. She was seen and evaluated on 05/29/25 for similar symptoms. Tested for flu per request and prescribed zofran. patient states she did take it but it did not help. patient reports she did not follow up. Patient parents would like her to have a test today. She denies any fever, chills, urinary symptoms, cough, shortness of breath, sore throat, otalgia. No recent sick contacts to her knowledge. No recent travel. No recent alcohol. No recent marijuana. MD elicited complaint: nausea, vomiting, diarrhea and abdominal pain Onset (ago): day(s) (6 days) Associated nausea: Yes Associated abdominal pain: Yes Location of pain: suprapubic Pain consistency: intermittent Severity: mild Quality: cramping Exacerbating factors: none Relieving factors: none Associated symptoms: denies other symptoms Treatment prior to arrival: other (zofran and pepto bismol) Related Data Home Medications ?Medication ?Instructions ?Recorded ?Confirmed ?Last Taken ?Type drospirenone (contraceptive) 4 mg 05/29/25 Unknown H istory (28) tablet (Slynd) Allergies Allergy/AdvReac Type Severity Reaction Status Date / Time Penicillins Allergy Intermediate Hives / Verified 06/01/25 09:08 Red Face Review of Systems Review of Systems: All systems reviewed & are unremarkable except as noted in HPI and below PMFSH Past Medical History Medical History (Updated 06/01/25 @ 09:32 by Melissa Lima APRN) Abnormal heart rate Morbid obesity Surgical History Surgical History (Updated 05/29/25 @ 19:40 by Damion Marshall APRN, FULFILLMENT REPRESENTATIVE) History of Family History Family History Grandparent Breast cancer Social History Social History Substance use: current Substance use type: marijuana Lack of Transportation: No Lack of Food: Never True Current Housing: I Have Housing Concerned About Future Housing: No Difficulty Paying Gas/Electric Bills: No Difficulty Paying for Meds: No Currently Unemployed: No Education: High School Diploma/GED Difficulty w/ Childcare or Family Care: No Spiritual care concerns: No Exam Narrative: this is a 40-year-old female Const: General: healthy appearing Nutritional Appearance: obese Orientation/consciousness: patient oriented x3 Limitations: no limitations HENMT: Head: normal to inspection Ears: external ears normal Face/Nose/Sinus: Normal external nose present Face and sinus: normal facial exam Mouth: Yes Normal oral and palatal mucosa present Teeth and gingiva: dentition normal Throat: posterior oropharynx normal Eyes: Conjunctivae: conjunctivae normal Pupils: Equal, round and reactive pupils present EOM: EOMs intact bilaterally Neck: Neck: normal visual inspection Chest: Chest palpation & inspection: normal inspection of the chest Resp: Effort & Inspection: normal respiratory effort Auscultation: clear to auscultation bilaterally Cardio: Rate: regular rate Rhythm: regular rhythm GI: GI Palp: Yes Soft to palpation Auscultation: normal bowel sounds : General: Yes Bladder palpation abnormal distended and tender Back/Spine/Pelvis: Back: no CVA tenderness Skin: General skin exam: normal color Rashes: no rashes Wounds: no wounds Neuro: General: patient oriented x3 Speech: normal speech Gait exam (Neuro): Normal gait present Extrem: General: normal to inspection, no clubbing, cyanosis or edema and no pedal edema Psych: Mental Status: mental status grossly normal Affect: normal affect Course Course Emergency Course: 40 y/o female that presents with complaints of continued nausea and vomiting. Her symptoms started 6 days ago. At that time she had a migraine headaches and abdominal discomfort. She has a history of migraines and her symptoms were consistent with normal migraine pattern. Pain was in frontal region, throbbing with associated photophobia. After vomiting around the time of symptom onset, her headache resolves. She continued to have nausea and vomiting without abdominal pain. She was seen and evaluated on 05/29/25 for similar symptoms. Tested for flu per request and prescribed zofran. patient states she did take it but it did not help. patient reports she did not follow up. Patient parents would like her to have a test today. She denies any fever, chills, urinary symptoms, cough, shortness of breath, sore throat, otalgia. No recent sick contacts to her knowledge. No recent travel. No recent alcohol. No rec ent marijuana. vital signs were reviewed urinalysis was performed noting 2+ bili 1+ ketones 1+ protein positive nitrates treatments leukocytes, pending culture. Urine is negative. On exam patient did have suprapubic tenderness, otherwise negative exam. Discussed findings, discharge with outpatient follow-up. She verbalizes understanding. Educated the patient to increase her fluids, continue with a bland liquid diet and advance only as tolerated. Continue with Zofran as previously prescribed. Continue with antibiotic for urinary tract infection, follow-up with provider in 2-3 days for further evaluation and exam. Return to the urgent care or emergency department any worrisome sign or symptom or continued symptoms. Answered all questions to her satisfaction she is agreeable to plan. Patient denies any further needs or concerns to be addressed prior to discharge Level of Care: Express Care Visit Vital Signs Vital signs: Vital Signs Temperature 97.0 F L 06/01/25 09:06 Pulse Rate 66 06/01/25 09:06 Respiratory Rate 18 06/01/25 09:06 Blood Pressure 107/67 06/01/25 09:06 Pulse Oximetry 100 06/01/25 09:06 Oxygen Delivery Room Air 06/01/25 09:06 Temperature 97.0 F L 06/01/25 09:06 Pulse Rate 66 06/01/25 09:06 Respiratory Rate 18 06/01/25 09:06 Blood Pressure 107/67 06/01/25 09:06 Pulse Oximetry 100 06/01/25 09:06 Oxygen Delivery Room Air 06/01/25 09:06 Discharge Plan Discharge Clinical Impression: UTI (urinary tract infection) Patient Disposition: Home Condition: Stable Instructions: Antibiotic Form, Urinary Tract Infection in Women (ED) Additional Instructions: increase fluids, continue with a bland liquid diet and advance only as tolerated. Continue with Zofran as previously prescribed. Continue with antibiotic for urinary tract infection, follow-up with provider in 2-3 days for further evaluation and exam. Return to the urgent care or emergency department any worrisome sign or symptom or continued symptoms. Patient Language: Faroese Prescriptions: New nitrofurantoin monohyd/m-cryst [Macrobid] 100 mg capsule 100 mg PO Q12H 5 Days Qty: 10 0RF Rx Instructions: must administer with a meal/food No Action ondansetron 4 mg tablet,disintegrating 4 mg PO Q8H PRN (Reason: nausea and vomiting) Qty: 15 0RF Slynd 4 mg (28) tablet Follow-up/Referrals: Aguilar Garcia MD [Primary Care Provider, Family Practice] Stand Alone Forms: Work/School Release IP Time of Disposition: 09:33 Quality NIHSS Nursing Documentation ED NIHSS nursing documentation: reviewed/agree
[2025-06-01 09:24] LABS: EDUAAPPEAR Cloudy; EDUABILI 2+ (Negative); EDUABLOOD Negative (Negative); EDUACOLOR1 Light/Pale; EDUAGLUCOSE Negative (Negative); EDUAKETONE 1+ (Negative); EDUALEUKO Trace (Negative); EDUANITRATE Positive (Negative); EDUAPH 6.0; EDUAPROTEIN 1+ (Negative); EDUASPGRAVITY 1.020; EDUAUROBILI 8.0
[2025-06-01 09:25] LABS: BEDSIDEPREGUCG Negative (Negative)
--- OUTSIDE RECORDS SUMMARY | 2025-06-01 09:30 | XMS_ITS | Clinical Summary ---
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
--- OUTSIDE RECORDS SUMMARY | 2025-06-01 09:30 | XMS_ITS | Data Portability ---
Author Organization [facility] Address [address] [place] [address] Care Team Providers Care Accounts Payables Clerk Name Role Phone SUKHI CARTWRIGHT Primary Care Provider Assessment Encounter Date Assessment Date Assessment LastModified by Organization Details LastModified Time 01/05/2023 01/05/2023 Annual gynecological exam performed. Patient will come back in a year unless there are new symptoms. [email or web address] Not available 01/05/2023 15:30:27 Plan of Treatment Reminders Order Date Submit Date Provider Last Modified By Organization Details Last Modified Time Details Appointments None recorded. Lab None recorded. Referral None recorded. Procedures None recorded. Surgeries None recorded. Imaging None recorded. Medication Orders Slynd 4 mg (28) tablet 2022 023 [facility][id number], [address], [place], [id number], 16:45:57 sertraline 50 mg tablet 2022 023 [facility] #75328, [address], [place], [id number], 16:20:22 Loestrin Fe 08/14 (28-Day) 1 mg-20 mcg (21)/75 mg (7) tablet 2022 023 [facility]73019, [address], [place], [id number], 16:46:13 Zoloft 50 mg tablet 2022 023 [facility]47115 [address] [facility], [place], [place], [id number], 14:32:51 Patient TargetsNo targets recorded. Patient InstructionsNo instructions recorded. Reason for Referral None Reported. Results Created Date Observation Date Name Description Value Unit Range Abnormal Flag Note LastModifiedBy Organization Detail LastModifiedTime 10/07/1910/06/2022 GTT - GESTA CARSON L, 2 HOUR, IADPS G glucose, fasting iadpsg 60 mg/dL 70-91 low Not Available [facility] (Lab) [address] [place], [address], 10/07/2022 03:38:10 10/07/19 23 10/06/2022 GTT - GESTA CARSON L, 2 HOUR, IADPS G glucose, 1 hour iadpsg 89 mg/dL 70-179 Not Available [facility] (Lab) [address] [place], [address], 10/07/2022 03:38:10 10/07/19 23 10/06/2022 GTT - GESTA CARSON L, 2 HOUR, IADPS G glucose, 2 hour iadpsg 93 mg/dL 70-152 Not Available [facility] (Lab) [address] [place], [address], 10/07/2022 03:38:10 10/14/19 23 10/13/2022 CULTU RE: GROUP B STREP SCREE N, REFLE X SUSCE PTIBI LITY result report SEE RESULT S BELOW Test: Cultu re: Group B Strep , Refle x Susce ptibi lity ([facility]/ [facility]/K H/VWH ) Speci men Sourc e: Vagin a/Rec joyce Speci men Type: Vagin al/Re ctal Speci men Date: 2022 4:16 PM Resul t Date: 2022 3:23 PM Resul t Statu s: Final resul t Abnor mal: No Resul ting Lab: [facility] [address] [facility] [address] Tel: CULTU RE ----- ----- ----- --- No Group B strep isola gary at 2 days (jean-paul mueller broth wayne huffman t) Not Available [facility] (Lab) [address], [place], [address], 10/16/2022 16:26:31 01/06/20 23 01/05/2023 IMAGE GUIDE D PAP AND HPV REGAR DLESS image guided Pap, HPV regardless of Pap result SEE RESULT S BELOW abnormal CASE REPOR T: Cytol ogy Gynec ologi ximena Repor t Case: [id number] Autho maría bean Provi yuniel: Barbara Mccauley, KOBE Colle cted: 01/05 1712 Order ing Locat ion: [place] Path[facility] [place] Recei sebas: 01/06 0720 First Scree n: Malena Hastings Patho logis t: Adonis Ghotra MD Speci men: Chardillan hinojosa Pap - Image d, Cervi x STATE MENT OF ADEQU ACY: Satis facto ry for evalu ation Trans forma tion zone compo nent prese nt FINAL DIAGN OSIS: Epith elial Cell Abnor malit y, Squam ous Cell: Low 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 Tasha anderson by Adonis Ghotra MD on 2022 at 3:35 PM ----- ----- ----- ----- ----- ----- ----- ----- ----- ----- ----- ----- ----- ----- ----- ----- ----- ---- HPV RESUL TS: HPV mRNA E6/E7 : Posit barb - HPV mRNA Detec gary HPV GENOT YPE 16 (ALYSSA) : Not Detec gary HPV GENOT YPE 18/45 (ALYSSA) : Not Detec gary NOTE: This high risk HPV mRNA assay detec ts fourt een high- risk HPV types (16, 18, 31, 33, 35, 39, 45, 51, 52, 56, 58, 59, 66, 68) witho ut diffe renti ation . This assay can diffe renti ate HPV 16 from HPV 18/45 , but does not diffe renti ate betwe en HPV 18 and HPV 45. A negat barb HPV 16, 18/45 genot ype assay resul t does not exclu de the possi bilit y of cytol ogic abnor malit ies or of futur e or under lying LEO 1, LEO 3 or cance r. COMME NT: This speci men was revie wed by a Cytot echno logis t and/o r Patho logis t (as indic ated in this repor t) after evalu ation using the Thinp rep Imagi ng Syste m. CLINI XIMENA INFOR MATIO N: Menst rual Statu s: LMP (if appli cable ): Clini ximena Histo ry/Pr eviou s Pap: Type of Neopl olivia (if appli cable ): Signi fican t Clini ximena Findi ngs: Other Histo ry: Hormo derrick (if appli cable ): SUGGE STED FOLLO W-UP: Follo w up as warra nted, based on curre nt guide lines and indiv idual patie nt consi derat ions. Not Available [facility] (Lab) [address], [place], [address], 01/08/2023 16:38:18 01/28/20 23 01/27/2023 SURGI XIMENA PATHO LOGY surgical pathology SEE RESULT S BELOW CASE REPOR T: Surgi ximena Patho logy Repor t Case: [id number] Autho maría bean Provi yuniel: Prince Reddy Colle cted: 01/27 1725 FAVOR MAKER Order ing Locat [place]: [place] Recei sebas: 01/28 0246 Patho logis t: Adonis Ghotra MD Speci mens: A) - Cervi x, TMZ B) - Endoc ervix , ECC FINAL DIAGN OSIS: A. Cervi x, TMZ, biops y: -Low- grade squam ous intra epith elial lesio n (LEO- 1) invol ving detac hed epith elial fragm ents. B. Cervi x, curet tage: -Foca l low-g rade squam ous intra epith elial lesio n (LEO- 1) invol ving detac hed epith elial fragm ents. Elect nydia salinas d by Adonis Ghotra MD on 023 at 1:48 PM ----- ----- ----- ----- ----- ----- ----- ----- ----- ----- ----- ----- ----- ----- ----- ----- ----- ---- CLINI XIMENA INFOR MATKENDELL N: r87.6 10 MICRO SCOPI C DESCR IPTIO N: A micro scopi c exami natio n was perfo rmed. GROSS DESCR IPTIO N: A. Cervi x. The speci men is label ed with the patie nt's name, demog raphi cs and TMZ . Recei sebas in forma cynthia is a 1.0 x 1.0 x 0.2 cm aggre gate of mucus and minut e white -bass tissu e. The entir e speci men is submi tted in one casse tte. Gross ed by Amadeo amezcua B. Endoc ervix . The speci men is label ed with the patie nt's name, demog raphi cs and ECC . Recei sebas in forma cynthia is a 1.5 x 1.5 x 0.2 cm aggre gate of mucus and minut e white -bass tissu e. The entir e speci men is submi tted in one casse tte. Gross ed by Amadeo amezcua Not Available [facility] (Lab) [address], [place], [address], 01/28/2023 14:53:21 10/02/19 23 10/01/2022 US, obste tric, follo w-up No observ ation record ed. [email or web address] [place] [address], [place], [address], 10/01/2022 18:42:22 10/02/19 23 10/01/2022 US, obste tric, follo w-up No observ ation record ed. [email or web address] [facility] [address], [place], [address], 10/05/2022 16:11:41 10/09/19 23 10/08/2022 US, obstdillan tric, limit ed No observ ation record ed. [email or web address] [place] [address], [place], [address], 10/08/2022 18:20:44 10/09/19 23 10/08/2022 US, obste tric, limit ed No observ ation record ed. [email or web address] [address], [place], [address], 10/12/2022 20:28:30 10/14/19 23 10/13/2022 US, aundrea castillo, bioph ysica l profi le No observ ation record ed. [email or web address] [place] [address], [place], [address], 10/13/2022 16:42:58 10/14/19 23 10/13/2022 US, aundrea castillo, bioph ysica l profi le No observ ation record ed. [email or web address] [facility] [address], [place], [address], 05/07/2025 17:21:00 10/29/19 23 10/22/2022 imagi ng/di agnos tic resul t No observ ation record ed. [address], [place], [address], 10/29/2022 15:47:44 Result Notes None recorded. Problems Name Problem SNOMED Code Status Onset Date Resolution Date Notes Provider Name and Address Organization Details Recorded Time Pyelonep hritis 56748421 Completed seen in L&D & ED 07/31/22, macrobid qd Jyotsna Belle null, [facility] 3 16:59:21 Social problem 159656431 Active does not have custody of son- lives in [place] with father Jyotsna Belle null, [facility] 3 16:59:21 Pyelonep hritis 67584744 Active seen in L&D & ED 07/31/22, macrobid qd Jyotsna Belle null, [facility] 3 16:59:21 Social problem 550645316 Completed does not have custody of son- lives in [place] with father Jyotsna Belle null, [facility] 3 16:59:21 Polyhydr amnios 67190146 Completed 2hr GTT, repeat KENDELL Jyotsna Belle null, [facility] 3 16:59:22 Advanced maternal age 200297385 Completed Jyotsna Laurale null, [facility] 3 16:59:21 Pregnanc y 35331532 Completed 202111/13/2022 Jyotsna Laurale null, [facility] 3 16:59:26 Problem Notes None recorded. Procedures Surgical History Date Name Laterality Status Provider Name and Address Organization Details Recorded Time 01/28/20 Colposcopy completed ALINA Curran- [address], [place], [address], [facility] 02/21/2023 22:26:51 10/23/19 23 section completed Tamra Edwards [facility] 11/16/2022 14:17:32 02/01/20 18 Date of Last Pap Smear completed Nadine Johnkarely [facility] 01/05/2023 14:14:19 07/26/19 06 extraction of wisdom tooth completed Tamra Edwards [facility] 08/06/2022 17:17:20 Imaging Results None recorded. Procedure Notes None recorded. Medical Equipment None Reported. Allergies Allergen ID Allergen Name Allergen Category Reaction Reaction Severity Criticality Documentation Date Start Date Code Code System Note Provider Name and Address Organization Details Recorded Time Product containin g penicilli n (product) medicatio n Not available Not available Not available 07/13/2022 04134 8001 SNOMED Tisha Bojorquez amador, [facility] 13:21:38 Medications Name Sig Start Date Stop Date Status Note LastModified by Organization Details LastModified Time hydrocodo ne 5 mg-acetam inophen 325 mg tablet TAKE 1 TABLET BY MOUTH EVERY 4 HOURS NEEDED FOR PAIN 11/16 completed Not Available Not Available Not Available ondansetr on HCl 4 mg tablet TAKE 4 MG BY MOUTH EVETRY 6 HOURS NEEDED FOR PAIN 11/16 completed Not Available Not Available Not Available Depo-Prov era 150 mg/mL intramusc ular suspensio n inject 1 millilit er by intramus cular route every 3 months 07/13 completed Prescrib ed Elsewher e: No Locat ion: [facility] M odify By: thea cali DateTime : 06/20/20 18 01:45:00 PM Not Available Not Available Not Available sertralin e 50 mg tablet TAKE 1 TABLET BY MOUTH EVERY DAY active Not Available Not Available No t Available nitrofura ntoin monohydra te/macroc rystals 100 mg capsule 08/20 completed Not Available Not Available Not Available Vitamin 11/16 completed Not Available Not Available Not Available Blisovi Fe 08/14 (28) 1 mg-20 mcg (21)/75 mg (7) tablet TAKE 1 TABLET BY MOUTH EVERY DAY 01/05 completed Not Available Not Available Not Available Slynd 4 mg (28) tablet TAKE 1 TABLET BY MOUTH EVERY DAY active Not Available Not Available No t Available Vitals Date Recorded Body weight Provider Name an d Address Organization Details Last Updated DateTime 10/29/2022 35307.14731 g Marcela Barahona [facility] 11/02/2022 13:32:06 Date Recorded Body height Body mass index (BMI) Systolic And Diastolic Provider Name and Address Organization Details Last Updated DateTime 10/29/2022 161.29 cm 35.4 kg/m2 120/83 mm[Hg] Tisha Maryellen [facility] 10/29/2022 16:08:39 Date Recorded Body height Body mass index (BMI) Body weight Systolic And Diastolic Provider Name and Address Organization Details Last Updated DateTime 11/16/2022 161.29 cm 34.2 kg/m2 82396.1 g 128/64 mm[Hg] Tamra Edwards [facility] 11/16/2022 14:14:54 Date Recorded Body height Systolic And Diastolic Provider Name and Address Organization Details Last Updated DateTime 12/03/2022 161.29 cm 115/68 mm[Hg] [facility] 12/03/2022 15:09:30 Date Recorded Body height Body mass index (BMI) Body weight Systolic And Diastolic Provider Name and Address Organization Details Last Updated DateTime 01/05/2023 161.29 cm 36.5 kg/m2 17847.24 g 112/75 mm[Hg] [facility] 01/05/2023 15:30:46 Date Recorded Body height Body mass index (BMI) Body weight Systolic And Diastolic Provider Name and Address Organization Details Last Updated DateTime 01/27/2023 161.29 cm 36.6 kg/m2 80546.4 g 119/77 mm[Hg] Marcela Reardon [facility] 01/27/2023 17:39:49 Social History Question Answer Notes LastModified by Organizat ion Details LastModified Time Tobacco Smoking Status Current Every Day Smoker [facility] 01/27/2023 17:26:45 If You Are , What Was Your Level Of Alcohol Consumption Prior To ? Occasional Information not available 01/27/2023 Are You Blind Or Do You Have Difficulty Seeing? No [email or web address] Information not available 08/06/2022 What Is Your Level Of Caffeine Consumption? Moderate [email or web address] Information not available 08/06/2022 How Much Tobacco Do You Chew? None [email or web address] Information not available 08/20/2022 In The 14 Days Before Symptom Onset, Have You Had Close Contact With A Laboratory-confir med COVID-19 While That Case Was Ill? No [email or web address] Information not available 08/06/2022 In The 14 Days Before Symptom Onset, Have You Had Close Contact With A Person Who Is Under Investigation For COVID-19 While That Person Was Ill? No [email or web address] Information not available 08/06/2022 Have You Been To An Area Known To Be High Risk For COVID-19? No [email or web address] Information not available 08/06/2022 Are You Deaf Or Do You Have Serious Difficulty Hearing? No [email or web address] Information not available 08/06/2022 What Type Of Diet Are You Following? REGULAR [email or web address] Information not available 08/06/2022 What Is The Highest Grade Or Level Of School You Have Completed Or The Highest Degree You Have Received? TO38231-6 [email or web address] Information not available 08/20/2022 Are There Any Guns Present In Your Home? No [email or web address] Information not available 08/20/2022 Do You Use Protection During Sex? Always [email or web address] Information not available 08/20/2022 Do You Use Your Seat Belt Or Car Seat Routinely? Yes [email or web address] Information not available 08/06/2022 Do You Have Smoke And Carbon Monoxide Detectors In Your Home? Yes [email or web address] Information not available 08/06/2022 At What Age Did You Start Smoking Tobacco? 18 [email or web address] Information not available 08/20/2022 How Much Tobacco Do You Smoke? 1 PPW [email or web address] Information not available 08/20/2022 Do You Use Sunscreen Routinely? Yes [email or web address] Information not available 08/06/2022 Has Tobacco Cessation Counseling Been Provided? No Information not available 01/27/2023 How Many Years Have You Smoked Tobacco? 14 [email or web address] Information not available 08/20/2022 Have You Used IV Drugs? No [email or web address] Information not available 08/20/2022 Do You Have Difficulty Walking Or Climbing Stairs? No Information not available 01/27/2023 Sex: Unknown Functional Status Question Answer Note LastModified by Organizat ion Details LastModified Time Do you use any illicit or recreational drugs? Yes [email or web address] Information not available 08/20/2022 Do you or have you ever used any other forms of tobacco or nicotine? No Information not available 01/27/2023 What is your level of alcohol consumption? None [email or web address] Information not available 08/06/2022 Are you able to walk independently without assistance or assistive devices? YESWOREST [email or web address] Information not available 08/06/2022 Are you able to care for yourself independently? Yes Information not available 01/27/2023 What is your occupation? Unemployed Information not available 08/20/2022 Do you have difficulty dressing, bathing, grooming, or toileting? No Information not available 01/27/2023 What is your exercise level? Occasional [email or web address] Information not available 08/06/2022 Mental Status Question Answer Note LastModified by Organization D etails LastModified Time Do you feel stressed (tense, restless, nervous, or anxious, or unable to sleep at night)? [id number] [email or web address] Information not available 08/06/2022 Family History Relationship Description Onset Age of this Age Resolved Age Notes LastModified by Organization Details LastModified Time Paternal Grandmother Malignant neoplasm of breast Not available 2022 17:26:44 Maternal Grandfather Heart disease [email or web address] Not available 2021 13:39:10 Paternal Grandfather Heart disease [email or web address] Not available 2021 13:39:10 Mother Hypertensive disorder [email or web address] Not available 2021 13:39:24 Mother Hemochromato sis Not available 2022 17:26:44 Medical History Condition Response Allergies (Food, seasonal, environmental ) N Other N Drug/Latex Allergies/Reactions Y Breast Cancer N Blood Transfusion N Lung Disease N Dermatologic Disorders N Defects or Inherited Disease N Breast Problem N Gestational Diabetes N Hematologic disorders N Anesthesia Complications N History of STI N Deep Vein Thrombosis N Polycystic ovary syndrome N Anxiety Disorder N Autoimmune disease N Arthritis N Polyps N Infertility N History of abnormal pap N Acid Reflux (GERD) N Cancer N Varicosities N Stroke N Neurologic/Epilepsy N Endometriosis N High Cholesterol N Headaches N Fibromyalgia N Kidney Disease N Heart Problems N Thyroid Problems N Kidney or Bladder Problems N GI Problems N Eating Disorder N Anemia N Art (IVF or FET) N Psychiatric Illness N Ovarian Cancer N Diabetes N Pulmonary (TB, Asthma) N Hepatitis/Liver Disease N No Past Medical History N Eczema N Urinary Tract Infection N Abuse/Domestic Violence N Asthma N Trauma/Violence N Depression/ depression N Heart Disease N Pre-Eclampsia N Hypertension N Osteoporosis N Thrombophilias N Gynecological History Statement/Question Response Date of LMP 01/19/2023 On BCP's at Conception? N N Was last menstrual period normal Y STIs/STDs N HPV Vaccine N Duration of Flow (days) 6 Current Control Method None Age at First Child 30 Sexually Active? N N/A Menses Monthly Y Age of first menstrual cycle 14 Date of Last Pap Smear 01/31/2018 Sexual Problems? N Desired Control Method N/A LMP Approximate N Obstetrics History GPAL:G 2 P 2 0 0 2 Type Value Full Term 2 Living 2 Total 2 Past Encounters Encounter ID Performer Location Encounter Start Date Encounter Closed Date Diagnosis/Indication Diagnosis SNOMED-CT Code Diagnosis ICD10 Code Diagnosis IMO Codes Diagnosis Note [id number] Florin Robison MD [place] [address] [address] 07/13/2022 12:03:37 07/13/2022 14:08:55 screening 061810411 Z36.87 O09.32 Z3A.22 [id number] Florin Robison MD [place] [address],[place] [address] 07/13/2022 12:04:47 07/13/2022 14:08:47 Routine care 025588845 Z34.82 [id number] Florin Robison MD [place] [address],[place] [address] 08/04/2022 16:00:40 08/05/2022 14:24:07 screening 318250326 Z36.3 [id number] [facility] [address],[place] [address] 08/06/2022 16:45:35 08/07/2022 16:40:52 Routine care 659739060 Z34.92 screening 2437 04794 Z36.89 Genetic in vestigation procedure 06527521 Z31.430 [id number] Joelle Garcia [facility] [address],[place] [address] 08/20/2022 11:38:55 08/20/2022 12:33:34 Routine care 791660931 Z34.92 [id number] Joelle Garcia [facility] [address],[place] [address] 09/03/2022 12:12:34 09/03/2022 12:42:00 Routine care 324798392 Z34.92 [id number] [facility] [address],[place] [address] 09/17/2022 13:54:20 09/17/2022 14:27:01 Routine care 220626931 Z34.92 [id number] Florin Robison MD [place] [address],[place] [address] 10/01/2022 14:08:05 10/01/2022 14:39:30 Uterine size for dates discrepancy 311403896 O26.843 Z3A.34 [id number] [facility] [address],[place] [address] 10/01/2022 14:08:30 10/01/2022 15:55:50 Routine care 201321090 Z34.92 [id number] Katie Romero MD [place] [address],[place] [address] 10/06/2022 12:13:59 10/07/2022 18:02:59 Polyhydramnios 13186732 O40.3XX0 Z3A.35 Advanced m aternal age 894730868 O09.523 [id number] Florin Robison MD [place] [address],[place] [address] 10/08/2022 13:59:55 10/08/2022 14:49:13 Polyhydramnios 07034886 O40.3XX0 Z3A.35 [id number] Katie Romero MD [place] [address],[place] [address] 10/13/2022 14:49:39 10/13/2022 15:56:54 Polyhydramnios 36857080 O40.3XX0 Z3A.36 [id number] [facility] [address],[place] [address] 10/13/2022 14:49:59 10/14/2022 17:59:10 Routine care 570949553 Z34.92 [id number] Joelle Garcia [facility] [address],[place] [address] 10/20/2022 16:39:16 10/21/2022 11:00:49 Routine care 426034544 Z34.92 [id number] Katie Romero MD [place] [address],[place] [address] 10/20/2022 16:58:58 10/20/2022 17:08:38 [id number] Florin Robison MD [place] [address],[place] [address] 10/29/2022 16:01:41 10/29/2022 16:25:37 Postoperative care 056540104 Z48.89 This patient is a 37-year-ol d multiparou s female presents for postop follow-up. She is 1 week postop from delivery. Her incisions clean dry and intact. Her mood is good. Her baby is doing well. She does have a history of depression . She did client any treatment at this time. Her vaginal bleeding is slowing down. She will return in 3 weeks for routine follow-up. [id number] Joelle Garcia CNM [place] [address] [address] 11/16/2022 14:04:21 11/17/2022 15:59:05 state 68166683 Z39.2 Continue to watch for signs/symp toms of post depression . Return one year from last pap smear for a well woman exam. Patient received above instructio ns, and questions have been answered. If you have any questions please call or respond to this email. Patient was made aware of the patient portal and may obtain a paper copy of today's plan if desired Mixed anxi ety and depressive disorder 293636357 F41.8 Pt would like to restart zoloft. No thoughts of harming herself or others. Risks, benefits, and precaution s discussed. Good support in place. Friend here with her for visit and supportive . Plan to return in 2 weeks for follow up. [facility] ion care management 777915652 Z30.9 Discussed all control options in great detail. Pt would like to start ocp. She is aware of the risks and benefits. She does not have any medical condition that is contraindi cated with the use of estrogen containing control. Pt will start her pills on the first Wednesday following the start of her period once she is at least 6 weeks post . She is aware it is not effective for control the first month. She is also aware of the importance of taking at the same time every day. Encouraged use of condoms as the pill does not protect against STD's. Will return in 3 months for med check. Consent was read and signed. Pt verbalized understand ing. [id number] ALINA Chao [place] [address] [address] 12/03/2022 14:47:04 12/03/2022 17:00:58 Mixed anxiety and depressive disorder 859146906 F41.8 doing well since starting sertraline symptoms have improvedno negative SEwould like to continue at current doserefill s sent, precaution s discussedR TC next month for WWE/ due for updated papEPDS 14 Time spent in visit is a total of 20 mins with at least 50% of visit consisting of counseling and review of plan of care. [id number] ALINA Chao [place] [address] [address] 01/05/2023 15:12:42 01/05/2023 17:21:13 Gynecologic examination 68773279 Z01.419 Z11.51 Take Calcium with Vitamin D 1200mg daily if not receiving in daily diet. It is strongly advised to have an annual flu shot and up can obtain at most pharmacies . If you have not had a TDap shot in the last 10 years you should obtain one as well. Discussed with patient & provided with informatio n regarding Gardisil vaccine to prevent the 4 strains for HPV that cause cervical cancer if under age 26. Encourage safe sexual practices, to use condoms and limit partners if not already in a monogamous relationsh ip. Do monthly self breast exams. Have mammogram yearly or every other year depending on family history. BRCA testing is now available for patients with strong genetic history of female cancer. If interested contact the office. Engage in daily exercise of low impact aerobic exercise 45-60 minutes 4-5 times weekly. Avoid tobacco and illicit drugs as well as using moderation with alcohol intake less than 1-2 8 oz beverages daily. This lifestyle behavior pattern will lead to less health conditions and longer life span. If BMI greater than 25 weight watchers or dietary consult advised. Patient received above instructio ns, and questions have been answered. If you have any questions please call or respond to this email. Patient was made aware of the patient portal and may obtain a paper copy of today's plan if desired. WWEBC - combined OCPdenies hx of DVT/PE, HTN, Stroke/MA, cancer, liver disease, or migraine with aurashe is a tobacco smokerdisc ussed need for progestero ne only method given tobacco smoker and age 35+discuss ed IUD, POP, DMPA, Nexplanon, non-hormon al options Discussed all control options in great detail. Pt would like to start POP. She is aware of the risks and benefits. She has contraindi cations to use of OCP or other estrogen containing hormonal therapy. She is going to finish out her current pill pack, and then start slynd. She is aware it is not effective for control the first month. She is also aware of the importance of taking at the same time every day. Encouraged use of condoms as the pill does not protect against STD's. Will return in 3 months for med check. Consent was read and signed. Pt verbalized understand ing.slynd samples given - [id number], 4rx [facility] pap 2018 - normalno hx of abnormals per patientSTI testing declinedUT D with PCPRTC in 1 year or sooner if needed Contracept ion care management [id number] Z30.9 [id number] ALINA Curran-[facility] [address] [address] 01/27/2023 17:25:44 02/22/2023 16:39:22 Low grade squamous intraepithelial lesion on cervical Papanicolaou smear [id number] R87.612 See procedure notes.Post -procedure instructio ns reviewed with understand ing verbalized .Will contact with results & next steps in plan of care. Counseled on Pap/HPV guidelines /Testing/R esults with understand ing verbalized .All questions answered to patient satisfacti on. Booklet & additional resources regarding pap smear/HPV/ Pap results given. [email or web address] ov/types/c ervical/un derstandin g-abnormal -hpv-and-p ap-test-re sults/unde rstanding- cervical-c hanges.pdf Health Concerns Section Related Observation LastModified by Organization Detai ls LastModified Time None Recorded Concern Status LastModified by Organization Details LastModified Time None Recorded Advance Directives Directive None Recorded Payers Insurance Date Sequence Insurance Name Policy Number Policy Young Covered Member ID Young Member ID Guarantor Name 06/29/2022 1 *SELF PAY* An doug So 02/22/2023 1 [facility] (MEDICAID HMO) [id number] Billy So [id number] Billy So Notes Date Note Type Note Provider Name and Address Organization Details Recorded Time 3 text/html This patient is a 37-year-old multiparous female presents for postop follow-up. She is 1 week postop from delivery. Her incisions clean dry and intact. Her mood is good. Her baby is doing well. She does have a history of depression. She did client any treatment at this time. Her vaginal bleeding is slowing down. She will return in 3 weeks for routine follow-up. Florin Robison MD [address], [place], [address], [facility] 10/29/2022 16:25:27 3 text/html VisitReported by PatientHPIFor associated symptoms, patient reportsno abnormal bleeding,no vaginal discharge,no pelvic pain,laceration well healed,no constipation,no fecal incontinence,no dysuria,no urinary incontinence,no fever,no problems,no mastitis, andnormal mood.History of depression. Is feeling a little depressed. Wants to restart zoloft. Joelle english, [facility] 11/20/2022 07:41:30 3 text/html 37yopresents for med checkstarted sertraline for anxiety/depression at LOVdoing well, feels like sertraline is helpingsymptoms are improvingno negative SEnever thoughts of harming herself or othershappy with the ALINA Chao [address], [place], [address], [facility] 12/03/2022 16:20:41 3 text/html Annual GYNReported by PatientGenitourinary symptomsFor menstrual cycle, patient reportsnormal menses. For urinary symptoms, patient reportsno hematuriaandno incontinence. For vulva, patient reportsno genital lesion. For vagina, patient reportsnormal vaginal discharge.Breast symptomsFor breast, patient reportsno breast pain,no breast lump, andno nipple discharge.ContraceptionFo r current contraception, patient reportssatisfied with current contraceptionandoral contraceptives.Endocrine symptomsFor sexual complaints, patient reportsno sexual complaints,no pain during intercourse, andnormal libido. For menopausal symptoms, patient reportsno menopausal symptomsandnormal vaginal lubrication.Psychological symptomsFor psychological symptoms, patient reportsno depression,no anxiety, andno pmdd.Preventative measuresFor preventive measures, patient reportsencourage self breast examination,encourage regular exercise,encourage no tobacco use, andencourage regular mammograms starting age 40. ALINA Chao [address], [place], [address], [facility] 01/05/2023 16:46:39 3 text/html ROS as noted in the HPI Here today for colposcopy of LGSIL pap 2022. ALINA Curran- [address], [place], [address], [facility] 02/21/2023 22:27:40 OBGyn Episode Ob Episode Information Episode Created Date Number of Fetuses Patient Bloodtype Patient rh Status Prepregnancy Weight lbs Domestic Partner Domestic Partner Phone Father Name Transportation Job Titles Status 07/13/20 22 1 CLOSED Fetus Data First Name Last Name Admitted to NICU Weight (g) Sex Living Outcome Pediatric Complications Fetus ID Race Codes Race Delivery Type 2466.17 9704 M Full Term [id number] Vaginal Delivery Kavon Calculation Initial Kavon Date Initial Exam Date Initial Exam Provider Initial Ultrasound Date Last Menstrual Period Date Ultra Sound Weeks Gestation 0 Eighteen To Twenty Week Kavon Update Ultra Sound Date Fundal Height At Umbil Quickening Date Ultra Sound Latest Weeks Gestation Final Kavon Confirmed By Final Kavon Confirmed Date Final Kavon Date Ultra Sound Latest Days Gestation 0 0 Menstrual History Last Menstrual Date Menses Monthly On Bcp Conception Prior Menses Frequency Hcg Plus Date Menarche Onset Age Delivery Information Delivery Date Delivery Type Labor Anesthesia Weeks Gestation Incision Type Labor Labor Length Hrs Delivered By Post Complications Tubal Sterilization Discharge Date Comments 5 38 Mary [place] n Discharge Information Feeding Method Contraceptive Method Maternal HG B and HCT Levels Ob Episode Information Episode Created Date Number of Fetuses Patient Bloodtype Patient rh Status Prepregnancy Weight lbs Domestic Partner Domestic Partner Phone Father Name Transportation Job Titles Status 07/13/20 22 1 O Positive 198 CLOSED Fetus Data First Name Last Name Admitted to NICU Weight (g) Sex Living Outcome Pediatric Complications Fetus ID Race Codes Race Delivery Type Rick 2523.10 57 F true Full Term non-reassuring fhts [id number] Primary Problems Problem Notes Problem Name Start Date End Date Resolution Snomed Code Not e Social problem [id number] does not have custody of son- lives in [place] with father Polyhydramnios [id number] 2hr G TT, repeat KENDELL Advanced maternal age [id number] Pyelonephritis [id number] seen in L&D & ED 07/31/22, macrobid qd Kavon Calculation Initial Kavon Date Initial Exam Date Initial Exam Provider Initial Ultrasound Date Last Menstrual Period Date Ultra Sound Weeks Gestation 11/10/2022 07/13/2022 07/13/2022 02/03/2022 22 Eighteen To Twenty Week Kavon Update Ultra Sound Date Fundal Height At Umbil Quickening Date Ultra Sound Latest Weeks Gestation Final Kavon Confirmed By Final Kavon Confirmed Date Final Kavon Date Ultra Sound Latest Days Gestation 0 [email or web address] 07/13/2022 11/11/19 23 0 Pre-gavin Flowsheet Flowsheet Date 07/13/2022 Sarabia Score Blood Edema Fundus Height Fundus Units Glucose Ketones Leukocytes Nitrite Labor Signs Protein Cervic Dilation Cervic Effacement Cervic Station Type Weight in lbs Pre/Post Dialysis Refused BP Diastolic BP Location Tested BP Systolic BP Type Fetus Heart Rate Present Fetus Movement Comments Flowsheet Date 07/13/2022 Sarabia Score Blood Edema Fundus Height Fundus Units Glucose Ketones Leukocytes Nitrite Labor Signs Protein Cervic Dilation Cervic Effacement Cervic Station Type Weight in lbs Pre/Post Dialysis Refused Weight 198.873438685489 BP Diastolic BP Location Tested BP Systolic BP Type 68 R arm 110 sitting Fetus Heart Rate Present Fetus Movement Comments this patient is a 37-year-ol d 2 para 1001 at 22 weeks 6 days gestation who presents for initial care. She has no problems. She has an unremarkable medical, surgical, obstetric history. She is on vaccinated and she was given vaccine recommendations. We will begin routine care. care was described to her in detail. Flowsheet Date 08/04/2022 Sarabia Score Blood Edema Fundus Height Fundus Units Glucose Ketones Leukocytes Nitrite Labor Signs Protein Cervic Dilation Cervic Effacement Cervic Station Type Weight in lbs Pre/Post Dialysis Refused BP Diastolic BP Location Tested BP Systolic BP Type Fetus Heart Rate Present Fetus Movement Comments Flowsheet Date 08/06/2022 Sarabia Score Blood Edema Fundus Height Fundus Units Glucose Ketones Leukocytes Nitrite Labor Signs Protein Cervic Dilation Cervic Effacement Cervic Station neg trace 30 none neg Type Weight in lbs Pre/Post Dialysis Refused Weight 200.010445696620 BP Diastolic BP Location Tested BP Systolic BP Type 70 119 Fetus Heart Rate Present A 143 Fetus Movement A Yes Comments Doing well. Was treated for kidney infection last week. Feeling much better. No contractions. Good movement. Will have labs drawn today including NIPT, CF and SMA. Having a girl, Rick Oates. Will do 1 hour gtt in 2 weeks. Flowsheet Date 08/20/2022 Sarabia Score Blood Edema Fundus Height Fundus Units Glucose Ketones Leukocytes Nitrite Labor Signs Protein Cervic Dilation Cervic Effacement Cervic Station neg trace 29 none trace Type Weight in lbs Pre/Post Dialysis Refused Weight 204.738699172700 BP Diastolic BP Location Tested BP Systolic BP Type 76 109 Fetus Heart Rate Present A 136 Fetus Movement A Yes Comments Doing well. No problems or c oncerns. 1 hour gtt today. Flowsheet Date 09/03/2022 Sarabia Score Blood Edema Fundus Height Fundus Units Glucose Ketones Leukocytes Nitrite Labor Signs Protein Cervic Dilation Cervic Effacement Cervic Station neg trace 31 none trace Type Weight in lbs Pre/Post Dialysis Refused Weight 207.788262502820 BP Diastolic BP Location Tested BP Systolic BP Type 74 110 Fetus Heart Rate Present A 134 Fetus Movement A Yes Comments Doing well. Rare contract ion. precautions given. Encouraged tdap. Flowsheet Date 09/17/2022 Sarabia Score Blood Edema Fundus Height Fundus Units Glucose Ketones Leukocytes Nitrite Labor Signs Protein Cervic Dilation Cervic Effacement Cervic Station neg trace 35 none trace Type Weight in lbs Pre/Post Dialysis Refused Weight 215.274980168135 BP Diastolic BP Location Tested BP Systolic BP Type 75 119 Fetus Heart Rate Present A 136 Fetus Movement A Yes Comments Doing well. Occasional co ntractions. S>D. Ultrasound to be scheduled. Will have the rest of her 28 week labs today. Encouraged to scheduled pre admit and tdap. Flowsheet Date 10/01/2022 Sarabia Score Blood Edema Fundus Height Fundus Units Glucose Ketones Leukocytes Nitrite Labor Signs Protein Cervic Dilation Cervic Effacement Cervic Station Type Weight in lbs Pre/Post Dialysis Refused BP Diastolic BP Location Tested BP Systolic BP Type Fetus Heart Rate Present Fetus Movement Comments Flowsheet Date 10/01/2022 Sarabia Score Blood Edema Fundus Height Fundus Units Glucose Ketones Leukocytes Nitrite Labor Signs Protein Cervic Dilation Cervic Effacement Cervic Station neg trace none trace Type Weight in lbs Pre/Post Dialysis Refused Weight 217.087792507517 BP Diastolic BP Location Tested BP Systolic BP Type 75 116 Fetus Heart Rate Present Fetus Movement A Yes Comments Doing well. Occasional contr actions. U/S normal growth with poly. Will do 2 hour gtt this week. Flowsheet Date 10/06/2022 Sarabia Score Blood Edema Fundus Height Fundus Units Glucose Ketones Leukocytes Nitrite Labor Signs Protein Cervic Dilation Cervic Effacement Cervic Station neg trace 37 none trace Type Weight in lbs Pre/Post Dialysis Refused Weight 218.103798870049 BP Diastolic BP Location Tested BP Systolic BP Type 77 113 Fetus Heart Rate Present A 150 Fetus Movement A Yes Comments Doing fine. GLucose repeat t nataliya for poly of 30. US follow up this week. Precautions given. GBS next week. Flowsheet Date 10/08/2022 Sarabia Score Blood Edema Fundus Height Fundus Units Glucose Ketones Leukocytes Nitrite Labor Signs Protein Cervic Dilation Cervic Effacement Cervic Station Type Weight in lbs Pre/Post Dialysis Refused BP Diastolic BP Location Tested BP Systolic BP Type Fetus Heart Rate Present Fetus Movement Comments Flowsheet Date 10/13/2022 Sarabia Score Blood Edema Fundus Height Fundus Units Glucose Ketones Leukocytes Nitrite Labor Signs Protein Cervic Dilation Cervic Effacement Cervic Station Type Weight in lbs Pre/Post Dialysis Refused BP Diastolic BP Location Tested BP Systolic BP Type Fetus Heart Rate Present Fetus Movement Comments Flowsheet Date 10/13/2022 Sarabia Score Blood Edema Fundus Height Fundus Units Glucose Ketones Leukocytes Nitrite Labor Signs Protein Cervic Dilation Cervic Effacement Cervic Station neg trace none trace Type Weight in lbs Pre/Post Dialysis Refused Weight 224.325043886465 BP Diastolic BP Location Tested BP Systolic BP Type 73 108 Fetus Heart Rate Present Fetus Movement A Yes Comments Doing well. Occasional contr actions. Poly on ultrasound. Breech presentation. Pt is interested in version if MD feels it is a good option. Reviewed with Dr Romero and she will be scheduled. Flowsheet Date 10/20/2022 Sarabia Score Blood Edema Fundus Height Fundus Units Glucose Ketones Leukocytes Nitrite Labor Signs Protein Cervic Dilation Cervic Effacement Cervic Station neg none 38 none trace 3cm Type Weight in lbs Pre/Post Dialysis Refused Weight 223.396510128999 BP Diastolic BP Location Tested BP Systolic BP Type 88 129 Fetus Heart Rate Present A 140 Fetus Movement A Yes Comments Doing well. Irregular contra ctions. By leopolds and cervical exam baby is likely vertex! Ultrasound to follow visit for presentation. Labor precautions discussed. Late entry: Vertex per ultrasound! Will reevaluate at each visit. Flowsheet Date 10/20/2022 Sarabia Score Blood Edema Fundus Height Fundus Units Glucose Ketones Leukocytes Nitrite Labor Signs Protein Cervic Dilation Cervic Effacement Cervic Station Type Weight in lbs Pre/Post Dialysis Refused BP Diastolic BP Location Tested BP Systolic BP Type Fetus Heart Rate Present Fetus Movement Comments Flowsheet Date 10/29/2022 Sarabia Score Blood Edema Fundus Height Fundus Units Glucose Ketones Leukocytes Nitrite Labor Signs Protein Cervic Dilation Cervic Effacement Cervic Station Type Weight in lbs Pre/Post Dialysis Refused Weight 203.40717591823 BP Diastolic BP Location Tested BP Systolic BP Type 83 R arm 120 sitting Fetus Heart Rate Present Fetus Movement Comments Menstrual History Last Menstrual Date Menses Monthly On Bcp Conception Prior Menses Frequency Hcg Plus Date Menarche Onset Age 0702/03/2022 Genetic Screening And Infection History Question Response Note Mental Retardation/Autism false Patient's Age Will Be 35 Years Or Older At Estim ated Date of Delivery false Thalassemia (Omani, Welsh, Mediterranean, Or Background): MCV < 80 false Neural Tube Defect (Meningomyelocele, Spina Bifi da, Or Anencephaly) false Congenital Heart Defect false Down Syndrome false Tyrone-Sachs (eg, Muslim, Cajun, Uzbek-Jenks) f alse Chase Disease false Sickle Cell Disease Or Trait () false Hemophilia Or Other Blood Disorders false Muscular Dystrophy false Cystic Fibrosis false Crowell's Chorea false Intellectual Disability/Autism false If Yes, Was Person Tested For Fragile X? false Other Inherited Genetic Or Chromosomal Disorder false Maternal Metabolic Disorder (eg, Type 1 Diabetes , PKU) false Patient Or Baby's Father Had A Child With Defects Not Listed Above false Recurrent Loss, Or A Stillbirth false Medications (including Suppl ements, Vitamins, Herbs, OTC Drugs), Illicit/Recreational Drugs, Alcohol false If Yes, Agent(s) And Strength/Dosage false Any Other Genetic History false Live With Someone With TB Or Exposed To TB false Patient Or Partner Has History Of Genital Herpes false Rash Or Viral Illness Since Last Menstrual Perio d false History Of STD, Gonorrhea, Chlamydia, HPV, Syphi lis false Other Infection History false History of HIV false History of Hepatitis false Prior GBS-infected child false Hemoglobinopathy Or Carrier false Other Structural Defect false Recent Travel History Outside of Country false Delivery Information Delivery Date Delivery Type Labor Anesthesia Weeks Gestation Incision Type Labor Labor Length Hrs Delivered By Post Complications Tubal Sterilization Discharge Date Comments 3 None Regional-Sp inal 37.2 Low Transvers e false Beer, Florin CAMPBELL AMA, Polyhydra mnios, Breech presentat ion Discharge Information Feeding Method Contraceptive Method Maternal HG B and HCT Levels Ob Episode Information Episode Created Date Number of Fetuses Patient Bloodtype Patient rh Status Prepregnancy Weight lbs Domestic Partner Domestic Partner Phone Father Name Transportation Job Titles Status 07/10/20 22 1 DELETED Kavon Calculation Initial Kavon Date Initial Exam Date Initial Exam Provider Initial Ultrasound Date Last Menstrual Period Date Ultra Sound Weeks Gestation 0 Eighteen To Twenty Week Kavon Update Ultra Sound Date Fundal Height At Umbil Quickening Date Ultra Sound Latest Weeks Gestation Final Kavon Confirmed By Final Kavon Confirmed Date Final Kavon Date Ultra Sound Latest Days Gestation 0 0 Menstrual History Last Menstrual Date Menses Monthly On Bcp Conception Prior Menses Frequency Hcg Plus Date Menarche Onset Age Delivery Information Delivery Date Delivery Type Labor Anesthesia Weeks Gestation Incision Type Labor Labor Length Hrs Delivered By Post Complications Tubal Sterilization Discharge Date Comments 5 Discharge Information Feeding Method Contraceptive Method Maternal HG B and HCT Levels
== END 2025-06-01 09:37 | disposition home or self-care (01) ==
PROVIDERS: Emergency Provider Nurse Practitioner Family; PCP Family Medicine
DX: N39.0 Urinary tract infection, site not specified (principal); F12.90 Cannabis use, unspecified, uncomplicated; E66.01 Morbid (severe) obesity due to excess calories
CPT/HCPCS: 81003; 81025; 87086; 99213; G0463